=== PATIENT | female | born 1935 | race Caucasian/White ===

== ENCOUNTER → 2017-10-19 | Outpatient (CLI) | payer MEDICARE ==
[~2017-10-19] MED LIST: ATELVIA35 MG PO; ATENOLOL50 MG PO; B-12; B-6 PO; CEFDINIR300 MG PO; CILOSTAZOL50 MG PO; CLINDAMYCIN HC300 MG PO; CYMBALTA30 MG PO; DIATRIZOATE MEGL/DIATRIZOA SOD 30 ML BTL PO ONE; ENALAPRIL MALE2.5 MG PO; FOLIC ACID PO; FUROSEMIDE40 MG PO; HYDROCODON-ACE1 EAC9 PO; IODOSORB40 GM TOP; IOPAMIDOL 370 MG/ML 200 ML INFUS..BTL INJ ONE; LASIX20 MG PO; LASIX40 MG PO; OXYBUTYNIN CHLOR5 MG PO; PLETAL50 MG PO; PRAVASTATIN SOD10 MG PO; PRIMIDONE50 MG PO; PROBIOTIC COMP1 EAC1 PO; SERTRALINE HCL50 MG PO; SODIUM CHLORIDE 0.9% 50ML 50 ML ONE; TYLENOL WITH C1 EACH PO; WARFARIN SODIUM5 MG PO; Z.0.COUMADIN2.5 MG PO; ZOFRAN ODT4 MG PO; ZYVOX600 MG PO
[2017-10-19 18:22] LABS: BLOOD UREA NITROGEN 20 mg/dL (7-26); BUN/CREATININE RATIO 29 (6-25); CREATININE, SERUM 0.69 mg/dL (0.57-1.11); EST GLOMERULAR FILTRATION RATE > 60 ML/MIN (60-)
--- NOTE | 2017-10-19 21:12 | Diagnostic Imaging Report ---
EXAM: CT of the abdomen and pelvis WITH contrast HISTORY: UTI, abdominal pain COMPARISON: CTA of the abdomen and pelvis October 04, 2015. CT of the abdomen and pelvis October 02, 2015. TECHNIQUE: The abdomen and pelvis were scanned utilizing a multidetector helical scanner. Coronal and sagittal reformats are provided. PROTOCOL: Routine IV CONTRAST: 100 cc of Isovue-370. ORAL CONTRAST: Dilute Gastrografin RADIATION DOSE: Total DLP: 280.08 mGy*cm Estimated effective dose: (DLP x 0.015 x size factor) COMPLICATIONS: None FINDINGS: LOWER THORAX: Prominent enlargement of the heart. Small low-density pericardial effusion. HEPATOBILIARY: Reflux of contrast into the hepatic veins. No focal hepatic lesions. No biliary ductal dilatation. The gallbladder is unremarkable. SPLEEN: No splenomegaly. PANCREAS: No focal masses or ductal dilatation. Diffuse parenchymal atrophy. ADRENALS: No discrete adrenal nodule. KIDNEYS/URETERS: No hydronephrosis or solid mass lesion. Left greater than right parenchymal atrophy. A punctate nonobstructing calcification near the inferior pole of the right kidney. PELVIC ORGANS/BLADDER: The urinary bladder is decompressed with a small focus of nondependent air. PERITONEUM / RETROPERITONEUM: Within the pelvis, between the urinary bladder and the sigmoid colon, a 2.1 x 5.5 x 2.3 cm apparent collection containing air foci and likely fecal material, best seen on axial image 69 and coronal image 55. LYMPH NODES: No pathologically enlarged lymph node. VESSELS: Diffuse scattered atherosclerotic vascular calcifications. Multiple vascular stents high-grade stenoses at the proximal celiac and superior mesenteric arteries. GI TRACT: No distention or wall thickening identified. Postsurgical changes of the stomach. Colonic diverticulosis and segmental sigmoid probable wall thickening. BONES: Diffusely decreased mineralization of the osseous structures limits bone detail. Multifocal degenerative changes of the axial skeleton, most notably at L4-5 with associated degenerative anterolisthesis of L4 on L5. SOFT TISSUES: Ventral abdominal wall postsurgical changes, appear stable, including some central hypodensity which may reflect a postsurgical fluid collection.. IMPRESSION: 1. Sigmoid colon segmental wall thickening and diverticulosis with probable collection of air and fecal material between the sigmoid colon and urinary bladder, along with a small air focus within the urinary bladder. This constellation of findings is suggestive of a fistula. An underlying malignancy may be a consideration in the appropriate setting. 2. Cardiomegaly and findings compatible with right heart failure. 3. A punctate nonobstructing right renal calculus. 4. Multiple postsurgical changes. 5. Atherosclerotic vascular disease. Signed by: Dr. Javier Salamanca D.O., M.M.M. on 10/19/2017 9:08 PM
== END ==
LOC: CT 17:19
PROVIDERS: ATTEND Internal Medicine
DX: N39.0 Urinary tract infection, site not specified (principal); R19.00 Intra-abdominal and pelvic swelling, mass and lump, unspecified site
CPT/HCPCS: 36415; 74177; 82565; 84520; Q9967

== ENCOUNTER → 2017-12-15 | Day surgery (SDC) | payer MEDICARE ==
[2017-12-12 16:57] LABS: BASOPHILS % 0.4 % (0.0-1.0); EOSINOPHILS # (AUTO) 0.1 (0.0-0.4); EOSINOPHILS % 1.5 % (0.0-6.0); HEMATOCRIT 29.1 % (34.2-44.1); HEMOGLOBIN 8.7 g/dL (12.0-16.0); LYMPHOCYTES # (AUTO) 2.6 (1.0-3.2); MEAN CORPUSCULAR HGB CONC 29.9 g/dL (31-35); MEAN CORPUSCULAR VOLUME 80.4 fL (81-99); MONOCYTES # (AUTO) 1.1 (0.2-0.8); MONOCYTES % 13.1 % (4.4-11.3); NEUTROPHILS # (AUTO) 4.5 (2.1-6.9); NEUTROPHILS % 53.8 % (38.7-80.0); PLATELET COUNT 294 x10e3/uL (140-360); RED BLOOD COUNT 3.62 x10e6/uL (3.6-5.1); RED CELL DISTRIBUTION WIDTH 20.6 % (11.7-14.4)
[~2017-12-15] MED LIST changes: +COUMADIN3 MG PO; -DIATRIZOATE MEGL/DIATRIZOA SOD 30 ML BTL PO ONE; +FOLIC ACID1 MG PO; -IOPAMIDOL 370 MG/ML 200 ML INFUS..BTL INJ ONE; +LEVOXYL25 MCG PO; +LIDOCAINE HCL 2% LOCAL INJ 5 ML SDV VIAL INJ ONE; +MIRALAX17 GM PO; +OMEGA-31000 MG PO; +POTASSIUM CITR10 MEQ PO; +PROPOFOL IV EMULSION 10 MG/ML 50 ML VIAL ONE; -SODIUM CHLORIDE 0.9% 50ML 50 ML ONE; +VIT C PO; +VITAMIN B-121000 MCG INJ
--- OUTSIDE RECORDS SUMMARY | 2017-12-15 11:01 | XMS REPORT ---
Author Author [facility] Address Unknown Phone Unavailable Care Team Providers Care Animal Care Taker Name Role Phone JEANNINE ZELAYA Unavailable Unavailable Problems This patient has no known problems. Allergies, Adverse Reactions, Alerts This patient has no known allergies or adverse reactions. Medications This patient has no known medications. Results Test Description Test Time Test Comments Text Results Atomic Results Result Comments CT ABDOMEN/PELVIS [place] [address] Patient Name: NATHANIEL HARRINGTON I MR #: [id number] : 1935 Age/Sex: 81/F Req #: [id number] Adm Physician: Ordered by: JEANNINE ZELAYA MD Report #: [id number] Location: CT Room/Bed: Procedure: [id number] CT/CT ABDOMEN/PELVIS W Exam Date: 10/19/17 Exam Time: 1830 REPORT STATUS: Signed EXAM: CT of the abdomen and pelvis WITH contrast HISTORY: UTI, abdominal pain COMPARISON : CTA of the abdomen and pelvis October 04, 2015. CT of the abdomen and pelvis October 02, 2015. TECHNIQUE: The abdomen and pelvis were scanned utilizing a multidetector helical scanner. Coronal and sagittal reformats are provided. PROTOCOL: Routine IV CONTRAST: 100 cc of Isovue-370. ORAL CONTRAST: Dilute Gastrografin RADIATION DOSE: Total DLP: 280.08 mGy*cm Estimated effective dose: (DLP x 0.015 x size factor) COMPLICATIONS: None FINDINGS: LOWER THORAX: Prominent enlargement of the heart. Small low-density pericardial effusion. HEPATOBILIARY: Reflux of contrast into the hepatic veins. No focal hepatic lesions. No biliary ductal dilatation. The gallbladder is unremarkable. SPLEEN: No splenomegaly. PANCREAS: No focal masses or ductal dilatation. Diffuse parenchymal atrophy. ADRENALS: No discrete adrenal nodule. KIDNEYS/URETERS: No hydronephrosis or solid mass lesion. Left greater than right parenchymal atrophy. A punctate nonobstructing calcification near the inferior pole of the right kidney. PELVIC ORGANS/BLADDER: The urinary bladder is decompressed with a small focus of nondependent air. PERITONEUM / RETROPERITONEUM: Within the pelvis, between the urinary bladder and the sigmoid colon, a 2.1 x 5.5 x 2.3 cm apparent collection containing air foci and likely fecal material, best seen on axial image 69 and coronal image 55. LYMPH NODES: No pathologically enlarged lymph node. VESSELS: Diffuse scattered atherosclerotic vascular calcifications. Multiple vascular stents high-grade stenoses at the proximal celiac and superior mesenteric arteries. GI TRACT: No distention or wall thickening identified. Postsurgical changes of the stomach. Colonic diverticulosis and segmental sigmoid probable wall thickening. BONES: Diffusely decreased mineralization of the osseous structures limits bone detail. Multifocal degenerative changes of the axial skeleton, most notably at L4-5 with associated degenerative anterolisthesis of L4 on L5. SOFT TISSUES: Ventral abdominal wall postsurgical changes, appear stable, including some central hypodensity which may reflect a postsurgical fluid collection.. IMPRESSION: 1. Sigmoid colon segmental wall thickening and diverticulosis with probable collection of air and fecal material between the sigmoid colon and urinary bladder, along with a small air focus within the urinary bladder. This constellation of findings is suggestive of a fistula. An underlying malignancy may be a consideration in the appropriate setting. 2. Cardiomegaly and findings compatible with right heart failure. 3. A punctate nonobstructing right renal calculus. 4. Multiple postsurgical changes. 5. Atherosclerotic vascular disease. Signed by: Dr. Chelsea Salamanca D.O., M.M.M. on 10/19/2017 9:08 PM Dictated By : CHELSEA SALAMANCA DO 07 Transcribed By: KATHERINE on 10/19/172107 COPY TO: JEANNINE ZELAYA MD ABDOMEN-1VIEW (KUB) [facility] [address] [address] Patient Name: NATHANIEL HARRINGTON I MR #: [id number] : 1935 Age/Sex: 81/F Req #: [id number] Adm Physician: Ordered by: JEANNINE ZELAYA MD Report #: [id number] Location: [facility] Room/Bed: Procedure: [id number] DX/ABDOMEN-1VIEW (KUB) Exam Date: 04/07/17 Exam Time: 8 REPORT STATUS: Signed PROCEDURE: X-RAY ABDOMEN - KUB COMPARISON: [facility], DX, ABDOMEN-1VIEW ( KUB), 01/23/2016, 16:49. INDICATIONS: REFLUX FINDINGS: Focal dilation of the proximal transverse colon, which measures approximately 8.7 cm in diameter, however, the proximal and distal large bowel are normal in caliber. No air-filled, dilated loops of small bowel. Mild amount of retained stool. No abnormal calcifications. Postoperative changes in the left upper quadrant as well as mesh placement and right common iliac stent are again seen. Degenerative changes in the thoracic spine. Lung bases are clear. Stable marked cardiomegaly. CONCLUSION: Focal dilation of the proximal transverse colon, however, the proximal and distal large bowel are normal in caliber. This may represent transient peristalsis. No small bowel dilation. Arturo Og M.D. Dictated by: Arturo Og M.D. on 04/07/2017 at 19:24 Electronically approved by: Arturo Og M.D. on 04/07/2017 at 19:24 Dictated By: ARTURO OG MD 23 Transcribed By: VALERIA on 04/07/171923 COPY TO: JEANNINE ZELAYA MD
[2017-12-15 11:42] LABS: INR 1.29; PROTHROMBIN TIME 15.1 seconds (11.9-14.5)
--- NOTE | 2017-12-18 05:07 | Operative Report ---
DATE OF PROCEDURE: December 15, 2017 REFERRING PHYSICIAN: Dr. Cierra Zelaya PROCEDURES PERFORMED 1. Esophagogastroduodenoscopy with esophageal dilatation. 2. Flexible sigmoidoscopy. INDICATIONS FOR EGD: Dysphagia, nausea and vomiting. INDICATIONS FOR COLONOSCOPY: Colorectal cancer screening, history of bright red blood per rectum, melena. MEDICATION: Patient was done under MAC. Please see anesthesiologist's note. PROCEDURE: With the patient in the left lateral decubitus position, the flexible fiberoptic Olympus gastroscope was introduced into the esophagus under direct visualization without any difficulty. There was some patchy erythema noted in the distal esophagus. There was a mild stricture noted at the GE junction that was dilated to size 52-Korean Dykes. The scope was then advanced with ease into the stomach, and there was a gastric stapling site approximately 5 cm distal to the lower esophageal sphincter. The gastroplasty site was intact. The scope was then advanced into the distal stomach, and the mucosa overlying the antrum and the distal body revealed some patchy, intense erythema and moderate edema, and biopsies were obtained and sent to stain for H. pylori. The pylorus was of normal contour and shape. It was intubated with ease, and the scope was advanced all the way to the 2nd portion of the duodenum. The scope was then withdrawn slowly. Mucosa overlying the proximal 2nd portion and the duodenal bulb appeared to be within normal limits. The scope was then withdrawn to above the gastric stapling site and was retroflexed. The mucosa overlying the fundus and the cardia appeared to be within normal limits. The scope was then straightened out. It was subsequently withdrawn. Patient tolerated the procedure well. IMPRESSION 1. Distal esophagitis. 2. Esophageal stricture at gastroesophageal junction dilated to size 52-Korean Dykes. 3. Status post gastric stapling. 4. Gastritis, biopsied. Biopsies sent to stain for H. pylori. PLAN: Follow up histology. Initiate Protonix 40 mg 1 p.o. q.a.m. a.c. The patient was then turned around. After adequate lubrication of the anal canal, a flexible fiberoptic Olympus colonoscope was inserted into the rectum with ease. It could not be advanced beyond 20 cm from the anal verge. The sigmoid colon was very sharply angulated and fixed. The scope was subsequently withdrawn, and an EGD scope was inserted into the rectum. Also, we could not negotiate that site with the EGD scope. There was some diverticulosis noted in the site. The scope was then withdrawn slowly. The mucosa overlying the distal sigmoid and rectum grossly appeared to be within normal limits. An attempt to retroflex the scope in the distal rectum was unsuccessful as the patient kept getting rid of the insufflated air. The scope was then withdrawn. Patient tolerated the procedure well. IMPRESSION 1. Flexible sigmoidoscopy to approximately 20 cm from the anal verge. Could not advance any further even with esophagogastroduodenoscope due to the distal sigmoid being sharply angulated and fixed. 2. Diverticulosis. PLAN: Will discuss with patient regarding the option of an air contrast barium enema. Job#: [id number] cc:JEANNINE ZELAYA MD
== END | disposition home or self-care (01) ==
LOC: OR 10:58
PROVIDERS: ATTEND Internal Medicine Gastroenterology
DX: Z12.11 Encounter for screening for malignant neoplasm of colon (principal); K29.50 Unspecified chronic gastritis without bleeding; K22.2 Esophageal obstruction; K20.9 Esophagitis, unspecified; Z98.84 Bariatric surgery status; K21.9 Gastro-esophageal reflux disease without esophagitis; K57.30 Diverticulosis of large intestine without perforation or abscess without bleeding; K56.609 Unspecified intestinal obstruction, unspecified as to partial versus complete obstruction; K62.5 Hemorrhage of anus and rectum; M19.90 Unspecified osteoarthritis, unspecified site; Z91.048 Other nonmedicinal substance allergy status; J45.909 Unspecified asthma, uncomplicated; E11.9 Type 2 diabetes mellitus without complications; I11.0 Hypertensive heart disease with heart failure; I50.9 Heart failure, unspecified; I48.91 Unspecified atrial fibrillation; N39.0 Urinary tract infection, site not specified; F32.9 Major depressive disorder, single episode, unspecified; Z01.812 Encounter for preprocedural laboratory examination; Z88.0 Allergy status to penicillin; Z79.01 Long term (current) use of anticoagulants; Z85.828 Personal history of other malignant neoplasm of skin; Z87.891 Personal history of nicotine dependence
CPT/HCPCS: 43239; 43450; G0104; 36415; 45330; 82948; 85025; 85610; 85730; 88305; 88312; J2001

== ENCOUNTER 2018-01-19 12:30 | Inpatient (IN) | payer MEDICARE ==
[~2018-01-19] VITALS: Ht 165.1 cm; Wt 59.0 kg
[~2018-01-19 12:30] MED LIST changes: -LIDOCAINE HCL 2% LOCAL INJ 5 ML SDV VIAL INJ ONE; -PROPOFOL IV EMULSION 10 MG/ML 50 ML VIAL ONE
[2018-01-19 13:15] LABS: BASOPHILS # (AUTO) 0.1 (0.0-0.1); BASOPHILS % 0.4 % (0.0-1.0); EOSINOPHILS # (AUTO) 0.1 (0.0-0.4); HEMATOCRIT 24.3 % (34.2-44.1); HEMOGLOBIN 7.3 g/dL (12.0-16.0); LYMPHOCYTES # (AUTO) 2.4 (1.0-3.2); LYMPHOCYTES % 20.4 % (18.0-39.1); MEAN CORPUSCULAR HEMOGLOBIN 24.1 pg (28-32); MEAN CORPUSCULAR VOLUME 80.2 fL (81-99); MONOCYTES # (AUTO) 1.8 (0.2-0.8); MONOCYTES % 15.2 % (4.4-11.3); NEUTROPHILS # (AUTO) 7.2 (2.1-6.9); NEUTROPHILS % 62.3 % (38.7-80.0); PLATELET COUNT 296 x10e3/uL (140-360); RED BLOOD COUNT 3.03 x10e6/uL (3.6-5.1); RED CELL DISTRIBUTION WIDTH 19.1 % (11.7-14.4)
[2018-01-19 13:34] LABS: ALANINE AMINOTRANSFERASE 12 IU/L (0-55); ALBUMIN 3.1 g/dL (3.5-5.0); ALBUMIN/GLOBULIN RATIO 0.8 (0.8-2.0); ALKALINE PHOSPHATASE 124 IU/L (40-150); ANION GAP 12.2 mmol/L (8-16); BLOOD UREA NITROGEN 20 mg/dL (7-26); BUN/CREATININE RATIO 27 (6-25); CALCIUM 9.1 mg/dL (8.4-10.2); CARBON DIOXIDE 27 mmol/L (22-29); CHLORIDE 103 mmol/L (98-107); CREATININE, SERUM 0.75 mg/dL (0.57-1.11); EST GLOMERULAR FILTRATION RATE > 60 ML/MIN (60-); GLUCOSE 86 mg/dL (74-118); POTASSIUM 4.2 mmol/L (3.5-5.1); SODIUM 138 mmol/L (136-145)
[2018-01-19 15:12] LABS: CLARITY,URINE SL CLOUDY (CLEAR); COLOR,URINE YELLOW (YELLOW); KETONES,URINE NEGATIVE (NEGATIVE); LEUKOCYTE ESTERASE ,URINE 1+ (NEGATIVE); NITRITE,URINE NEGATIVE (NEGATIVE); PROTEIN,URINE DIPSTICK NEGATIVE (NEGATIVE)
[2018-01-19 15:13] LABS: BILIRUBIN,URINE NEGATIVE (NEGATIVE); URINE UROBILINOGEN 0.2 mg/dL (0.2 - 1)
[2018-01-19 15:23] LABS: BACTERIA,URINE MODERATE /HPF; EPITHELIAL CELLS,URINE FEW /LPF; MUCUS,URINE FEW (RARE)
[2018-01-19 15:25] LABS: INR 1.41; PROTHROMBIN TIME 16.2 seconds (11.9-14.5)
[2018-01-19 15:26] LABS: PARTIAL THROMBOPLASTIN TIME 30.3 seconds (23.8-35.5)
[2018-01-19] MEDS ORDERED: SODIUM CHLORIDE 0.9% 250ML 250 ML IV ONE (16:30)
[2018-01-19] MEDS ORDERED: ACETAMINOPHEN 325 MG TAB PO STA (16:31)
[2018-01-19] MEDS ORDERED: SODIUM CHLORIDE FLUSH 10 ML SYR INJ PRN (16:45)
[2018-01-19] MEDS ORDERED: LEVOFLOXACIN 500 MG TAB PO SCH (17:30)
[2018-01-19] MEDS ORDERED: FUROSEMIDE 40 MG TAB PO SCH (17:30)
[2018-01-19] MEDS ORDERED: FUROSEMIDE 20 MG TAB PO PRN (17:45)
[2018-01-19] MEDS ORDERED: FUROSEMIDE INJ 10 MG/ML 4 ML VIAL IV ONE (17:45)
--- NOTE | 2018-01-19 18:43 | History and Physical ---
She is an 82-year-old female patient of mine who presented to the emergency room with the complaint of severe weakness and bloody urine. HISTORY OF PRESENT ILLNESS: The patient was evaluated as outpatient. The patient was found to have a low hemoglobin of 7.4. The patient was advised to be admitted. Possible anemia as the patient is on anticoagulation. The patient had a recent endoscopy done, but the patient had incomplete colonoscopy. It was sigmoid because of that and inability to pass the scope further than the sigmoid colon. ALLERGIES: THE PATIENT IS ALLERGIC TO PENICILLIN. SOCIAL HISTORY: The patient used to be a smoker. Stopped smoking. REVIEW OF SYSTEMS: The patient is wheelchair bound. PAST MEDICAL HISTORY: The patient has hypertension, anemia, atrial fibrillation, recurrent UTIs, wheelchair bound. The patient has PAD. The patient with lower extremity skin cancer, which was treated with radiation. FAMILY HISTORY: Hypertension, osteoarthritis. PHYSICAL EXAMINATION GENERAL: She is an elderly female patient lying in bed not in acute distress. VITALS: Temperature 98, pulse rate 80, respirations 16, blood pressure 110/73. HEENT: Normocephalic and atraumatic. Pallor present. NECK: No JVD or lymphadenopathy. LUNGS: Air entry fair bilaterally. No rales or rhonchi. HEART: S1 and S2. Irregularly irregular. ABDOMEN: Soft. Bowel sounds are present. NEURO: Nonfocal. No neurological deficit. ADMITTING IMPRESSION/DIAGNOSES 1. Severe anemia. 2. Anemia of ptpbs-[id number] blood loss: The patient is on anticoagulation for the atrial fibrillation, on Coumadin. 3. The patient also has a urinary tract infection. 4. The patient has coronary artery disease. 5. Severe osteoarthritis. PLAN: The patient will be admitted with the above diagnoses. Will treat the patient with IV antibiotics. Culture C and S. Give the patient packed RBCs for severe anemia. Will obtain neurology consultation. Job#: [id number] AK
[2018-01-19 20:00] VITALS: BP 127/75
[2018-01-19 20:01] VITALS: BP 162/74
[2018-01-19 20:25] LABS: ELLIPTOCYTE, RBC SLIGHT; EOSINOPHILS % (MANUAL) 2 % (0-7); HYPOCHROMASIA SLIGHT; LYMPHOCYTES % (MANUAL) 10 % (19-48); MONOCYTES % (MANUAL) 12 % (3.4-9.0); NEUTROPHILS % (MANUAL) 75 % (40-74); PLATELET ESTIMATE ADEQUATE; PLATELET MORPHOLOGY COMMENT NORMAL; POIKILOCYTOSIS SLIGHT; RBC MORPHOLOGY COMMENT NORMAL; STOMATOCYTES SLIGHT
[2018-01-19] MEDS: PRAVASTATIN 20 MG TAB PO SCH (21:00)
[2018-01-19] MEDS ORDERED: FUROSEMIDE INJ 10 MG/ML 4 ML VIAL ONE (23:44)
[2018-01-20] VITALS (8 sets, daily range): BP systolic 124–158; BP diastolic 55–79
[2018-01-20] MEDS: MORPHINE SULFATE 2 MG/ML SYR IV PRN ×3 (00:29→21:31)
[2018-01-20] MEDS: ONDANSETRON HCL INJ 2 MG/ML VIAL IV PRN (00:31)
[2018-01-20 05:35] LABS: BASOPHILS % 0.3 % (0.0-1.0); EOSINOPHILS # (AUTO) 0.1 (0.0-0.4); EOSINOPHILS % 0.6 % (0.0-6.0); HEMATOCRIT 28.9 % (34.2-44.1); HEMOGLOBIN 9.1 g/dL (12.0-16.0); LYMPHOCYTES # (AUTO) 2.1 (1.0-3.2); LYMPHOCYTES % 15.5 % (18.0-39.1); MEAN CORPUSCULAR HEMOGLOBIN 24.9 pg (28-32); MEAN CORPUSCULAR HGB CONC 31.5 g/dL (31-35); MEAN CORPUSCULAR VOLUME 79.2 fL (81-99); MONOCYTES # (AUTO) 2.2 (0.2-0.8); MONOCYTES % 16.1 % (4.4-11.3); NEUTROPHILS # (AUTO) 9.1 (2.1-6.9); NEUTROPHILS % 67.1 % (38.7-80.0); PLATELET COUNT 296 x10e3/uL (140-360); RED BLOOD COUNT 3.65 x10e6/uL (3.6-5.1); RED CELL DISTRIBUTION WIDTH 18.1 % (11.7-14.4)
[2018-01-20 06:00] LABS: ALANINE AMINOTRANSFERASE 12 IU/L (0-55); ALBUMIN 2.9 g/dL (3.5-5.0); ALBUMIN/GLOBULIN RATIO 0.7 (0.8-2.0); ALKALINE PHOSPHATASE 119 IU/L (40-150); BLOOD UREA NITROGEN 21 mg/dL (7-26); BUN/CREATININE RATIO 26 (6-25); CALCIUM 9.1 mg/dL (8.4-10.2); CARBON DIOXIDE 31 mmol/L (22-29); CHLORIDE 99 mmol/L (98-107); EST GLOMERULAR FILTRATION RATE > 60 ML/MIN (60-); GLUCOSE 92 mg/dL (74-118); SODIUM 138 mmol/L (136-145)
[2018-01-20] MEDS: LEVOTHYROXINE SODIUM 25 MCG TABLET PO SCH (06:00)
[2018-01-20 06:14] LABS: INR 1.37; PROTHROMBIN TIME 15.9 seconds (11.9-14.5)
[2018-01-20 06:47] LABS: ANISOCYTOSIS SLIGHT; EOSINOPHILS % (MANUAL) 1 % (0-7); LYMPHOCYTES % (MANUAL) 13 % (19-48); MICROCYTOSIS SLIGHT; MONOCYTES % (MANUAL) 18 % (3.4-9.0); NEUTROPHILS % (MANUAL) 68 % (40-74); PLATELET ESTIMATE ADEQUATE; PLATELET MORPHOLOGY COMMENT NORMAL; RBC MORPHOLOGY COMMENT NORMAL
[2018-01-20] MEDS ORDERED: ENALAPRIL MALEATE 2.5 MG PO SCH (09:00)
[2018-01-20] MEDS ORDERED: NON-FORMULARY MEDICATION (Pravastatin Sodium 20 MG) PO SCH (09:00)
[2018-01-20] MEDS ORDERED: ASCORBIC ACID 500 MG TAB PO SCH (09:00)
[2018-01-20] MEDS ORDERED: OMEGA 3 POLYUNSAT FATTY ACIDS 1000 MG SOFTGEL PO SCH (09:00)
[2018-01-20] MEDS ORDERED: LEVOTHYROXINE SODIUM 25 MCG TABLET PO SCH (09:00)
[2018-01-20] MEDS ORDERED: VIT C PO SCH (09:00)
[2018-01-20] MEDS: FOLIC ACID 1 MG TAB PO SCH (09:03)
[2018-01-20] MEDS: ATENOLOL 50 MG TAB PO SCH (09:03)
[2018-01-20] MEDS: PRIMIDONE 50 MG TAB PO SCH (09:03)
[2018-01-20] MEDS: SERTRALINE HCL 50 MG TAB PO SCH (09:04)
[2018-01-20] MEDS: POTASSIUM CITRATE 10 MEQ TAB PO SCH (09:04)
[2018-01-20] MEDS: ENALAPRIL MALEATE 5 MG TAB PO SCH (09:04)
[2018-01-20] MEDS ORDERED: METOPROLOL TARTRATE INJ 1 MG/ML VIAL IV PRN (12:45)
[2018-01-20] MEDS ORDERED: HYDRALAZINE HCL 20 MG/ML VIAL IV PRN (12:45)
[2018-01-20 12:52] LABS: MAGNESIUM 1.4 MG/DL (1.3-2.1); PHOSPHORUS 3.2 MG/DL (2.3-4.7)
[2018-01-20 13:15] LABS: FREE THYROXINE INDEX 1.7441 (1.4-3.8); THYROID STIMULATING HORMONE 1.222 uIU/mL (0.350-4.940)
[2018-01-20] MEDS ORDERED: SODIUM CHLORIDE 0.9% IV ONE (14:00)
[2018-01-20] MEDS ORDERED: IRON SUCROSE IV ONE (14:00)
[2018-01-20 14:26] LABS: FERRITIN 26.8 ng/mL (4.63-204.00)
[2018-01-20] MEDS ORDERED: IRON SUCROSE 200 MG in SODIUM CHLORIDE 0.9% 100 ML 100 ML IV SCH (15:00)
--- NOTE | 2018-01-20 16:40 | Consultation ---
DATE OF CONSULTATION: January 20, 2018 UROLOGY CONSULTATION REASON FOR CONSULTATION: Hematuria. HISTORY OF PRESENT ILLNESS: Anila Scott is an 82-year-old woman with recurrent urinary tract infections. Patient has both stress and urge-type urinary incontinence. She has never seen a urologist. She denies any previous urolithiasis. She has had intermittent gross hematuria, and she is anticoagulated. She was evaluated for admission. PAST MEDICAL AND SURGICAL HISTORY 1. Atrial fibrillation. 2. Anemia. 3. Hypertension. 4. Osteoarthritis with extremely bad knees. 5. Peripheral artery disease status post bilateral lower extremity stenting. 6. COPD. 7. 3, para 3 by spontaneous vaginal delivery. 8. Status post skin cancer of the lower extremity, status post radiotherapy followed by a dtyr-ucv-l-half of healing a wound. 9. Status post ventral hernia repair. 10. Status post EGD with dilation of esophageal stricture. 11. Status post sigmoidoscopy with inability to pass further. ALLERGIES: PENICILLIN, ADHESIVE TAPE, AND POSSIBLY IV CONTRAST. CURRENT MEDICATIONS: Please refer to the MAR. SOCIAL HISTORY: The patient has a supportive at the bedside. She denies current smoking, alcohol and drug use. The patient used to smoke but quit many years ago. 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 FAMILY HISTORY: Noncontributory to the active urological problems. REVIEW OF SYSTEMS: As consistent with above history of present illness and past medical history, is otherwise negative for all other systems. PHYSICAL EXAMINATION GENERAL: A debilitated-appearing elderly woman lying in bed in no apparent distress. VITAL SIGNS: She is currently afebrile. Her vital signs are currently stable. ABDOMEN: Soft, nondistended, nontender, without costovertebral angle tenderness. Kidneys are not palpable, without hepatosplenomegaly. There is a healed midline scar from previous hernia repair. GENITOURINARY: The patient is currently in a diaper, and the urine is grossly bloody. For the remaining physical examination and systems, please refer to the admission history and physical on the chart. LABORATORY AND DIAGNOSTIC STUDIES: CT scan of the abdomen and pelvis performed 3 months ago revealed a sigmoid colon segmental wall thickening and diverticulosis with probable collection of fecal material between the sigmoid colon and the urinary bladder along with a small air focus in the urinary bladder. This was suggesting of a colovesical fistula. Also, there is a punctate right renal calculus present and atherosclerotic vascular disease. No urine culture is pending on this current admission, unfortunately. White blood cell count is 13,580. Hemoglobin has decreased to 9.1. Platelets are 296,000. Patient's creatinine is normal at 0.8. Urinalysis significant for 6-10 RBCs, 11-20 WBCs, a few epithelial cells and moderate bacteria. ASSESSMENT 1. Gross hematuria. 2. Leukocytosis. 3. Anemia. 4. Recurrent urinary tract infections. 5. Punctate right nephrolithiasis. 6. Mixed-type urinary incontinence. 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 PLAN 1. Will order a urine culture and sensitivity on ER urinalysis specimen. 2. Recommend decreasing the Levaquin dose due to increased age of the patient. 3. We need a catheterized urine culture and sensitivity. 4. The patient needs cystoscopy and retrograde pyelograms, et cetera, when medically and cardiologically cleared. Thank you very much for involving us in the care of your patient. We will be happy to follow her along with you as well as an outpatient. Job#: [id number] cc:JEANNINE ZELAYA MD
[2018-01-20] MEDS: LEVOFLOXACIN 250 MG TAB PO SCH (16:46)
[2018-01-20] MEDS: PRAVASTATIN 20 MG TAB PO SCH (21:30)
[2018-01-21] VITALS (9 sets, daily range): BP systolic 104–161; BP diastolic 44–84
[2018-01-21] MEDS: PANTOPRAZOLE 40 MG 10ML VIAL IV SCH ×3 (02:00→20:09)
[2018-01-21] MEDS: MORPHINE SULFATE 2 MG/ML SYR IV PRN ×4 (02:10→20:10)
[2018-01-21 04:51] LABS: BASOPHILS % 0.4 % (0.0-1.0); EOSINOPHILS # (AUTO) 0.1 (0.0-0.4); HEMATOCRIT 28.8 % (34.2-44.1); HEMOGLOBIN 8.9 g/dL (12.0-16.0); LYMPHOCYTES # (AUTO) 1.9 (1.0-3.2); LYMPHOCYTES % 17.1 % (18.0-39.1); MEAN CORPUSCULAR HEMOGLOBIN 24.9 pg (28-32); MEAN CORPUSCULAR HGB CONC 30.9 g/dL (31-35); MEAN CORPUSCULAR VOLUME 80.4 fL (81-99); MONOCYTES # (AUTO) 1.9 (0.2-0.8); MONOCYTES % 16.9 % (4.4-11.3); NEUTROPHILS # (AUTO) 7.2 (2.1-6.9); NEUTROPHILS % 64.1 % (38.7-80.0); PLATELET COUNT 264 x10e3/uL (140-360); RED BLOOD COUNT 3.58 x10e6/uL (3.6-5.1); RED CELL DISTRIBUTION WIDTH 18.7 % (11.7-14.4)
[2018-01-21 05:03] LABS: INR 1.55; PROTHROMBIN TIME 17.5 seconds (11.9-14.5)
[2018-01-21] MEDS: LEVOTHYROXINE SODIUM 25 MCG TABLET PO SCH (06:25)
[2018-01-21 07:34] LABS: EOSINOPHILS % (MANUAL) 3 % (0-7); LYMPHOCYTES % (MANUAL) 10 % (19-48); MONOCYTES % (MANUAL) 13 % (3.4-9.0); NEUTROPHILS % (MANUAL) 74 % (40-74); PLATELET ESTIMATE ADEQUATE; PLATELET MORPHOLOGY COMMENT NORMAL; RBC MORPHOLOGY COMMENT NORMAL
[2018-01-21] MEDS: PRIMIDONE 50 MG TAB PO SCH (10:05)
[2018-01-21] MEDS: FOLIC ACID 1 MG TAB PO SCH (10:05)
[2018-01-21] MEDS: SERTRALINE HCL 50 MG TAB PO SCH (10:06)
[2018-01-21] MEDS: POTASSIUM CITRATE 10 MEQ TAB PO SCH (10:06)
[2018-01-21] MEDS: ENALAPRIL MALEATE 5 MG TAB PO SCH (10:06)
[2018-01-21] MEDS: ATENOLOL 50 MG TAB PO SCH (10:06)
[2018-01-21] MEDS: LEVOFLOXACIN 250 MG TAB PO SCH (17:37)
[2018-01-21] MEDS: PRAVASTATIN 20 MG TAB PO SCH (20:09)
[2018-01-21] MEDS: ONDANSETRON HCL INJ 2 MG/ML VIAL IV PRN (20:09)
[2018-01-22] VITALS (8 sets, daily range): BP systolic 119–169; BP diastolic 58–74
[2018-01-22 04:25] LABS: BASOPHILS % 0.3 % (0.0-1.0); EOSINOPHILS # (AUTO) 0.1 (0.0-0.4); EOSINOPHILS % 0.7 % (0.0-6.0); HEMATOCRIT 28.9 % (34.2-44.1); HEMOGLOBIN 8.7 g/dL (12.0-16.0); LYMPHOCYTES # (AUTO) 2.3 (1.0-3.2); LYMPHOCYTES % 18.4 % (18.0-39.1); MEAN CORPUSCULAR HGB CONC 30.1 g/dL (31-35); MONOCYTES # (AUTO) 2.3 (0.2-0.8); MONOCYTES % 18.8 % (4.4-11.3); NEUTROPHILS # (AUTO) 7.5 (2.1-6.9); NEUTROPHILS % 61.3 % (38.7-80.0); PLATELET COUNT 246 x10e3/uL (140-360); RED BLOOD COUNT 3.48 x10e6/uL (3.6-5.1); RED CELL DISTRIBUTION WIDTH 19.7 % (11.7-14.4)
[2018-01-22 04:36] LABS: INR 1.53; PROTHROMBIN TIME 17.3 seconds (11.9-14.5)
[2018-01-22 04:44] LABS: ALANINE AMINOTRANSFERASE 9 IU/L (0-55); ALBUMIN 2.6 g/dL (3.5-5.0); ALBUMIN/GLOBULIN RATIO 0.7 (0.8-2.0); ALKALINE PHOSPHATASE 113 IU/L (40-150); ANION GAP 10.3 mmol/L (8-16); BLOOD UREA NITROGEN 15 mg/dL (7-26); BUN/CREATININE RATIO 22 (6-25); CALCIUM 8.9 mg/dL (8.4-10.2); CARBON DIOXIDE 30 mmol/L (22-29); CHLORIDE 99 mmol/L (98-107); CREATININE, SERUM 0.69 mg/dL (0.57-1.11); EST GLOMERULAR FILTRATION RATE > 60 ML/MIN (60-); GLUCOSE 97 mg/dL (74-118); POTASSIUM 4.3 mmol/L (3.5-5.1); SODIUM 135 mmol/L (136-145)
[2018-01-22] MEDS: MORPHINE SULFATE 2 MG/ML SYR IV PRN ×2 (05:22→19:46)
[2018-01-22] MEDS: LEVOTHYROXINE SODIUM 25 MCG TABLET PO SCH (05:22)
[2018-01-22 06:57] LABS: EOSINOPHILS % (MANUAL) 1 % (0-7); LYMPHOCYTES % (MANUAL) 16 % (19-48); MONOCYTES % (MANUAL) 19 % (3.4-9.0); NEUTROPHILS % (MANUAL) 64 % (40-74)
[2018-01-22 07:05] LABS: ANISOCYTOSIS SLIGHT; HYPOCHROMASIA MODERATE
[2018-01-22 07:06] LABS: PLATELET ESTIMATE ADEQUATE; PLATELET MORPHOLOGY COMMENT NORMAL; POIKILOCYTOSIS SLIGHT; RBC MORPHOLOGY COMMENT NORMAL
[2018-01-22] MEDS: ENALAPRIL MALEATE 5 MG TAB PO SCH (09:00)
[2018-01-22] MEDS: ATENOLOL 50 MG TAB PO SCH (09:00)
[2018-01-22] MEDS: FOLIC ACID 1 MG TAB PO SCH (09:00)
[2018-01-22] MEDS: SERTRALINE HCL 50 MG TAB PO SCH (09:00)
[2018-01-22] MEDS: PRIMIDONE 50 MG TAB PO SCH (09:00)
[2018-01-22] MEDS: PANTOPRAZOLE 40 MG 10ML VIAL IV SCH ×2 (09:00→21:26)
[2018-01-22] MEDS: POTASSIUM CITRATE 10 MEQ TAB PO SCH (09:00)
[2018-01-22] MEDS: LEVOFLOXACIN 250 MG TAB PO SCH (16:44)
[2018-01-22] MEDS: BALSAM PERU/CASTOR OIL 60 GM OINT...G. TP SCH (16:44)
[2018-01-22] MEDS: ONDANSETRON HCL INJ 2 MG/ML VIAL IV PRN (19:46)
[2018-01-22] MEDS: PRAVASTATIN 20 MG TAB PO SCH (21:26)
[2018-01-23] VITALS (7 sets, daily range): BP systolic 122–136; BP diastolic 59–69
[2018-01-23] MEDS ORDERED: BISACODYL 5 MG TAB EC PO ONE
[2018-01-23] MEDS: ONDANSETRON HCL INJ 2 MG/ML VIAL IV PRN (00:18)
[2018-01-23] MEDS: MORPHINE SULFATE 2 MG/ML SYR IV PRN (00:18)
[2018-01-23 04:23] LABS: BASOPHILS % 0.3 % (0.0-1.0); EOSINOPHILS # (AUTO) 0.1 (0.0-0.4); EOSINOPHILS % 0.9 % (0.0-6.0); HEMATOCRIT 28.2 % (34.2-44.1); HEMOGLOBIN 8.5 g/dL (12.0-16.0); LYMPHOCYTES # (AUTO) 2.4 (1.0-3.2); MEAN CORPUSCULAR HEMOGLOBIN 25.3 pg (28-32); MEAN CORPUSCULAR HGB CONC 30.1 g/dL (31-35); MEAN CORPUSCULAR VOLUME 83.9 fL (81-99); MONOCYTES # (AUTO) 2.1 (0.2-0.8); MONOCYTES % 17.6 % (4.4-11.3); NEUTROPHILS # (AUTO) 7.1 (2.1-6.9); NEUTROPHILS % 60.8 % (38.7-80.0); PLATELET COUNT 220 x10e3/uL (140-360); RED BLOOD COUNT 3.36 x10e6/uL (3.6-5.1); RED CELL DISTRIBUTION WIDTH 20.3 % (11.7-14.4)
[2018-01-23 04:35] LABS: INR 1.49; PROTHROMBIN TIME 16.9 seconds (11.9-14.5)
[2018-01-23 04:44] LABS: ALANINE AMINOTRANSFERASE 9 IU/L (0-55); ALBUMIN 2.6 g/dL (3.5-5.0); ALBUMIN/GLOBULIN RATIO 0.7 (0.8-2.0); ALKALINE PHOSPHATASE 113 IU/L (40-150); ANION GAP 10.6 mmol/L (8-16); BLOOD UREA NITROGEN 18 mg/dL (7-26); BUN/CREATININE RATIO 25 (6-25); CALCIUM 8.7 mg/dL (8.4-10.2); CARBON DIOXIDE 29 mmol/L (22-29); CHLORIDE 98 mmol/L (98-107); CREATININE, SERUM 0.72 mg/dL (0.57-1.11); EST GLOMERULAR FILTRATION RATE > 60 ML/MIN (60-); GLUCOSE 109 mg/dL (74-118); POTASSIUM 4.6 mmol/L (3.5-5.1); SODIUM 133 mmol/L (136-145)
[2018-01-23 04:48] LABS: ANISOCYTOSIS SLIGHT; EOSINOPHILS % (MANUAL) 1 % (0-7); LYMPHOCYTES % (MANUAL) 15 % (19-48); MONOCYTES % (MANUAL) 18 % (3.4-9.0); NEUTROPHILS % (MANUAL) 65 % (40-74); PLATELET ESTIMATE ADEQUATE; PLATELET MORPHOLOGY COMMENT NORMAL; RBC MORPHOLOGY COMMENT NORMAL
[2018-01-23] MEDS: LEVOTHYROXINE SODIUM 25 MCG TABLET PO SCH (06:07)
[2018-01-23] MEDS: PANTOPRAZOLE 40 MG 10ML VIAL IV SCH ×2 (08:53→21:05)
[2018-01-23] MEDS: ATENOLOL 50 MG TAB PO SCH (08:53)
[2018-01-23] MEDS: FOLIC ACID 1 MG TAB PO SCH (08:53)
[2018-01-23] MEDS: PRIMIDONE 50 MG TAB PO SCH (08:53)
[2018-01-23] MEDS: ENALAPRIL MALEATE 5 MG TAB PO SCH (08:54)
[2018-01-23] MEDS: SERTRALINE HCL 50 MG TAB PO SCH (08:54)
[2018-01-23] MEDS: POTASSIUM CITRATE 10 MEQ TAB PO SCH (08:55)
[2018-01-23] MEDS: BALSAM PERU/CASTOR OIL 60 GM OINT...G. TP SCH ×2 (08:55→16:23)
[2018-01-23] MEDS ORDERED: SODIUM CHLORIDE 0.9% 250ML 250 ML ONE (16:22)
[2018-01-23] MEDS ORDERED: LACTULOSE SYRUP 20 GM/30 ML UDC PO PRN (17:15)
[2018-01-23] MEDS: LEVOFLOXACIN 250 MG TAB PO SCH (17:18)
[2018-01-23] MEDS: PRAVASTATIN 20 MG TAB PO SCH (21:05)
[2018-01-23] MEDS: HYDROCODONE/APAP 7.5MG-325MG 1 EA TAB PO PRN (21:05)
[2018-01-23] MEDS ORDERED: IOPAMIDOL 370 MG/ML 200 ML INFUS..BTL INJ ONE (21:15)
[2018-01-24] VITALS: BP 133/62
[2018-01-24 04:23] VITALS: BP 108/63
[2018-01-24 04:28] LABS: BASOPHILS % 0.3 % (0.0-1.0); EOSINOPHILS # (AUTO) 0.2 (0.0-0.4); EOSINOPHILS % 1.8 % (0.0-6.0); HEMATOCRIT 29.7 % (34.2-44.1); LYMPHOCYTES % 19.7 % (18.0-39.1); MEAN CORPUSCULAR HEMOGLOBIN 25.1 pg (28-32); MEAN CORPUSCULAR HGB CONC 30.3 g/dL (31-35); MEAN CORPUSCULAR VOLUME 82.7 fL (81-99); MONOCYTES # (AUTO) 1.5 (0.2-0.8); MONOCYTES % 15.4 % (4.4-11.3); NEUTROPHILS # (AUTO) 6.2 (2.1-6.9); NEUTROPHILS % 62.2 % (38.7-80.0); PLATELET COUNT 227 x10e3/uL (140-360); RED BLOOD COUNT 3.59 x10e6/uL (3.6-5.1); RED CELL DISTRIBUTION WIDTH 20.7 % (11.7-14.4)
[2018-01-24 04:41] LABS: INR 1.42; PROTHROMBIN TIME 16.3 seconds (11.9-14.5)
[2018-01-24 05:21] LABS: EOSINOPHILS % (MANUAL) 3 % (0-7); LYMPHOCYTES % (MANUAL) 15 % (19-48); MONOCYTES % (MANUAL) 12 % (3.4-9.0); NEUTROPHILS % (MANUAL) 70 % (40-74)
[2018-01-24 05:22] LABS: ANISOCYTOSIS SLIGHT; PLATELET ESTIMATE ADEQUATE; RBC MORPHOLOGY COMMENT NORMAL
[2018-01-24] MEDS: HYDROCODONE/APAP 7.5MG-325MG 1 EA TAB PO PRN (05:52)
[2018-01-24] MEDS: LEVOTHYROXINE SODIUM 25 MCG TABLET PO SCH (05:52)
[2018-01-24 08:00] VITALS: BP 122/58
[2018-01-24] MEDS: PRIMIDONE 50 MG TAB PO SCH (08:56)
[2018-01-24] MEDS: PANTOPRAZOLE 40 MG 10ML VIAL IV SCH ×2 (08:56→21:23)
[2018-01-24] MEDS: FOLIC ACID 1 MG TAB PO SCH (08:56)
[2018-01-24] MEDS: BALSAM PERU/CASTOR OIL 60 GM OINT...G. TP SCH ×2 (08:57→16:50)
[2018-01-24] MEDS: SERTRALINE HCL 50 MG TAB PO SCH (08:57)
[2018-01-24] MEDS: POTASSIUM CITRATE 10 MEQ TAB PO SCH (08:57)
[2018-01-24] MEDS: ATENOLOL 50 MG TAB PO SCH (08:57)
[2018-01-24] MEDS: ENALAPRIL MALEATE 5 MG TAB PO SCH (08:58)
[2018-01-24 12:00] VITALS: BP 127/71
[2018-01-24 16:00] VITALS: BP 123/56
--- NOTE | 2018-01-24 16:39 | Diagnostic Imaging Report ---
PROCEDURE: CT ABDOMEN \T\ PELVIS W/WO CONTRAST TECHNIQUE: The abdomen and pelvis were scanned utilizing a multidetector helical scanner from the diaphragm to the lesser trochanter before and after the IV administration of 150 cc of Isovue 370. Coronal and sagittal multiplanar reformations were obtained. RADIATION DOSE: 730 mGy-cm COMPARISON: None. INDICATIONS: HEMATURIA, RENAL STONE, COLOVESICAL FISTULA FINDINGS: LOWER THORAX: Moderate partially seen pericardial effusion. HEPATOBILIARY: No focal hepatic lesions. No biliary ductal dilatation. SPLEEN: No splenomegaly. PANCREAS: No focal masses or ductal dilatation. ADRENALS: No adrenal nodules. KIDNEYS/URETERS: No hydronephrosis or solid mass lesions. Bilateral renal atrophy, left greater than right. Punctate nonobstructing right lower pole renal stone. Bilateral hyperdense renal cysts are noted on noncontrast CT. On postcontrast images, there is no evidence of urothelial lesion. The bilateral ureters are partially opacified, areas of non opacification on the right likely reflecting peristalsis and areas of non-opacification of the left ureter distally may reflect PELVIC ORGANS/BLADDER: Bladder is only partially opacified by contrast on post contrast images. Mild bladder wall thickening posteriorly. Some layering debris or hemorrhagic products are noted on post contrast images. PERITONEUM / RETROPERITONEUM: Again noted is a collection containing air and possible stool between the bladder and sigmoid colon, measuring up to 4.3 x 2.1 x 2.1 cm (TV x AP x SI) slightly decreased from prior CT by measurement when it measured 4.3 x 2.4 x 2.9 cm. LYMPH NODES: No lymphadenopathy. VESSELS: Atherosclerotic calcification of the abdominal aorta and branch vessels. Likely stenoses of the origins of the celiac artery and SMA, incompletely evaluated in the absence fo arterial phase images. GI TRACT: Sigmoid colonic wall thickening is again noted adjacent to the collection. Sigmoid diverticulosis is present. Surgical changes of the stomach. The rectum is distended with stool measuring up to 8.7 cm. BONES AND SOFT TISSUES: No acute osseous abnormality. Degenerative changes of the lumbar spine, most marked at L4-L5. Anterolisthesis of L4-L5. Ventral abdominal wall postsurgical changes are again noted. IMPRESSION: Findings consistent with sigmoid diverticulitis with persistent but slightly smaller collection between the sigmoid colon and urinary bladder. 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 As before, an underlying malignancy may also be considered in the appropriate setting. Punctate right lower pole renal calculus without hydronephrosis. No evidence of ureteral stone or urothelial lesion. Partially seen moderate pericardial effusion. Extensive atherosclerotic changes as above. Dictated by: MARIELENA NORTH M.D. on 01/24/2018 at 16:43 Electronically approved by: MARIELENA NORTH M.D. on 01/24/2018 at 16:43
[2018-01-24] MEDS: GUAIFENESIN 600MG/DEXTROMETHORPHAN 30MG TABSR PO SCH (16:50)
[2018-01-24] MEDS: LEVOFLOXACIN 250 MG TAB PO SCH (16:50)
[2018-01-24 20:00] VITALS: BP 111/70
[2018-01-24] MEDS: PRAVASTATIN 20 MG TAB PO SCH (21:23)
[2018-01-25] VITALS: BP 119/56
[2018-01-25] MEDS: HYDROCODONE/APAP 7.5MG-325MG 1 EA TAB PO PRN ×2 (02:58→10:02)
[2018-01-25 04:00] VITALS: BP 140/63
[2018-01-25 04:59] LABS: INR 1.41; PROTHROMBIN TIME 16.2 seconds (11.9-14.5)
[2018-01-25] MEDS: LEVOTHYROXINE SODIUM 25 MCG TABLET PO SCH (05:33)
[2018-01-25 08:00] VITALS: BP 131/60
[2018-01-25 09:00] VITALS: BP 131/71
[2018-01-25] MEDS: FOLIC ACID 1 MG TAB PO SCH (09:58)
[2018-01-25] MEDS: PANTOPRAZOLE 40 MG 10ML VIAL IV SCH (09:58)
[2018-01-25] MEDS: PRIMIDONE 50 MG TAB PO SCH (09:58)
[2018-01-25] MEDS: GUAIFENESIN 600MG/DEXTROMETHORPHAN 30MG TABSR PO SCH ×2 (09:58→16:43)
[2018-01-25] MEDS: ATENOLOL 50 MG TAB PO SCH (10:00)
[2018-01-25] MEDS: SERTRALINE HCL 50 MG TAB PO SCH (10:01)
[2018-01-25] MEDS: POTASSIUM CITRATE 10 MEQ TAB PO SCH (10:01)
[2018-01-25] MEDS: ENALAPRIL MALEATE 5 MG TAB PO SCH (10:01)
[2018-01-25] MEDS: BALSAM PERU/CASTOR OIL 60 GM OINT...G. TP SCH ×2 (10:01→16:43)
--- NOTE | 2018-01-25 11:08 | Discharge Summary ---
Ms. Anila Scott is an 82-year-old female patient who presented to me with complaint of severe weakness and blood in the urine, hematuria. ADMITTING IMPRESSION AND DIAGNOSIS 1. Severe anemia, mzsnp-[id number] blood loss. The patient is on anticoagulation. 2. Urinary tract infection. 3. Hematuria. 4. Coronary artery disease. 5. Chronic obstructive pulmonary disease. 6. Severe osteoarthritis. HOSPITAL COURSE SUMMARY: The patient was admitted with the above diagnosis. The patient was treated with antibiotic. The patient had urology, GI and hematology consultations done. The patient was given blood transfusion. CT scan of the abdomen and pelvis was ordered to evaluate for colovesical fistula that was suspected. The patient had refused all the studies. She had explanation. Finally, the patient agreed to do the test. The CT scan was done. Impression was found to have sigmoid diverticulitis. The patient was treated with IV antibiotic Levaquin, which was changed to oral antibiotic Levaquin. The patient had steadfastly refused any surgical intervention, although it seems like the patient should have surgical intervention. The patient was advised to have cystoscopy and retrograde. If the patient agrees, it will be done as an outpatient. We will also obtain a surgical evaluation with Dr. Royal for possible fistula or a sigmoid mass. Only a sigmoidoscopy was able to be done as an outpatient earlier because the colonoscope was not able to pass through the sigmoid colon. We will get , and further treatment will be done as an outpatient. JEANNINE ZELAYA MD Job#: [id number]
[2018-01-25 12:00] VITALS: BP 116/54
[2018-01-25 16:00] VITALS: BP 141/76
[2018-01-25] MEDS: LEVOFLOXACIN 250 MG TAB PO SCH (16:43)
[2018-01-25] MEDS ORDERED: SIMVASTATIN 20 MG TAB PO SCH (21:00)
== END 2018-01-25 20:15 | disposition home or self-care (01) | DRG 811 ==
LOC: ER 12:30 → ERHOLD 18:36 → MED/SURG2 19:08 → OBSVTOIN 01-21 13:17
PROVIDERS: ADMIT Internal Medicine; ATTEND Internal Medicine
PROC: 30233N1 Transfusion of Nonautologous Red Blood Cells into Peripheral Vein, Percutaneous Approach (ICD-10-PCS; principal; 2018-01-21)
DX: D62 Acute posthemorrhagic anemia (principal); K25.5 Chronic or unspecified gastric ulcer with perforation; N39.0 Urinary tract infection, site not specified; K57.32 Diverticulitis of large intestine without perforation or abscess without bleeding; I25.10 Atherosclerotic heart disease of native coronary artery without angina pectoris; J44.9 Chronic obstructive pulmonary disease, unspecified; M19.90 Unspecified osteoarthritis, unspecified site; K44.9 Diaphragmatic hernia without obstruction or gangrene; L89.151 Pressure ulcer of sacral region, stage 1; F17.210 Nicotine dependence, cigarettes, uncomplicated; I48.91 Unspecified atrial fibrillation; Z79.01 Long term (current) use of anticoagulants; Z88.0 Allergy status to penicillin; B96.20 Unspecified Escherichia coli [E. coli] as the cause of diseases classified elsewhere; N39.46 Mixed incontinence; R31.0 Gross hematuria
CPT/HCPCS: 36415; 36430; 74178; 80053; 81001; 82150; 82270; 82306; 82728; 82784; 83540; 83690; 83735; 83880; 84100; 84436; 84443; 84466; 84479; 84550; 85025; 85045; 85610; 85730; 86850; 86900; 86920; 87086; 87186; 93005; 93306; 97139; 99285; G0378; J1756; J1940; J2270; J2405; J7050; P9016; Q9967

== ENCOUNTER 2018-08-20 16:04 | Emergency (ER) | payer MEDICARE ==
[~2018-08-20] VITALS: Ht 165.1 cm; Wt 59.0 kg
--- NOTE | 2018-08-20 16:20 | NUR ---
RECEIVED REPORT FROM YUNIEL WIRE COATING OPERATOR METAL NURSE TO ASSUME PTS CARE. PT PLACED IN BOYLE BED A. FAMILY AT BEDSIDE
--- NOTE | 2018-08-20 16:45 | NUR ---
DR WADE AT BEDSIDE DRESSING WOUNDS. PT WITH WOUND ON LEFT CASTILLO AND RIGHT HEEL.
--- NOTE | 2018-08-20 17:25 | NUR ---
WHEN I WENT TO DISCHARGE THE PATIENT THREE FAMILY MEMBERS BECAME AGRESSIVE AND TRIED TO REFUSE THE DISCHARGE. THEY WANTED THE PATIENT TO BE ADMITTED. THEY KEPT SAYING THAT THE PATIENT CAN'T GET UP AND THAT SHE ALWAYS URINATES ON HERSELF. I EXPLAINED TO THEM THAT THOSE ARE NOT INDICATIONS FOR ADMISSION AND THAT THEY WOULD NEED TO FOLLOW UP WITH HER PCP FOR THOSE ISSUES. I CALLED [facility] TO TAKE THE PATIENT HOME
--- NOTE | 2018-08-20 17:40 | NUR ---
FAMILY INSISTED ON CHECKING PT FOR UTI SO DR. WADE ORDERED A UA
[2018-08-20 18:19] LABS: BILIRUBIN,URINE 1+ (NEGATIVE); CLARITY,URINE CLOUDY (CLEAR); COLOR,URINE RED (YELLOW); KETONES,URINE NEGATIVE (NEGATIVE); LEUKOCYTE ESTERASE ,URINE 2+ (NEGATIVE); NITRITE,URINE NEGATIVE (NEGATIVE); PROTEIN,URINE DIPSTICK 2+ (NEGATIVE); URINE UROBILINOGEN 1 mg/dL (0.2 - 1)
[2018-08-20 18:20] LABS: BACTERIA,URINE MANY /HPF; RBC,URINE >50 /HPF (0-5); WBC,URINE (MAN) >50 /HPF (0-5)
[2018-08-20] MEDS ORDERED: CIPROFLOXACIN 500 MG TAB PO NR (18:30)
--- NOTE | 2018-08-20 18:50 | NUR ---
[facility]S ARRIVED FOR PT. DR. SOLANO GAVE THEM RX FOR ANTIBIOTICS
[2018-08-20 18:56] VITALS: BP 130/79
== END 2018-08-20 18:58 | disposition home or self-care (01) ==
LOC: ER 16:04
DX: L89.613 Pressure ulcer of right heel, stage 3 (principal); L89.893 Pressure ulcer of other site, stage 3; R53.1 Weakness; N39.0 Urinary tract infection, site not specified; I10 Essential (primary) hypertension; I48.91 Unspecified atrial fibrillation; Z85.828 Personal history of other malignant neoplasm of skin
CPT/HCPCS: 81001; 99283

== ENCOUNTER 2018-08-23 17:59 | Inpatient (IN) | payer MEDICARE ==
[~2018-08-23] VITALS: Ht 162.6 cm; Wt 66.5 kg
--- NOTE | 2018-08-23 18:00 | NUR ---
PAUL ENP, LITERARY AGENT, ED NURSE X2 AT BEDSIDE FOR WOUND ASSESSMENT AND TREATMENT. WOUNDS NOTED: LEFT LOWER EXTREMITY WITH 6X4 CM LEFT LATERAL LOWER LEG, 2X2 LEFT MEDIAL LOWER LEG, LEFT ANKLE 2X2, LEFT HEEL UNMEASURED, LEFT GREAT TOE UNMEASURED. RIGHT LOWER EXTREMITY WITH 2ND TOE DISTAL PHALYNX, RIGHT HEEL WITH BLEEDFINGM, UNABLE TO VISUALIZE FOR ANY STAGING, RIGHT DORSAL ASPECT OF FOOT NONBLANCHING, RIGHT LATERAL 5TH METATARSAL NONBLANCHING, LATERAL MALLEOLUS NONBLANCHABLE, UNIDENTIFIABLE LESION TO RIGHT LOWER LEG BELOW KNEE RIGHT UPPER EXTREMITY MULTIPLE NONBLANCHABLE AREAS RIGHT RIGHT WRIST AND FOREARM, BANDAID ON RIGHT FOREARM WITH HEALING WOUND. PATIENTS BACK NEAR WHAT APPEARS TO BE BRALINE WITH 16-17 CM STAGE II WOUND WITH RUPTURED BLISTERS, MULTIPLE AREAS ON BACK WITH NONBLANCHABLE SKIN, RIGHT BUTTOCK WITH NONSTAGEABLE SKIN SACRUM WITH LARGE UNSTAGEABLE WOUND X2 COCCYX WITH 3 SKIN TEARS.
--- OUTSIDE RECORDS SUMMARY | 2018-08-23 18:04 | XMS REPORT ---
Author Author [facility] Address Unknown Phone Unavailable Care Team Providers Care Measurement Technician Name Role Phone Hector ZELAYA Unavailable Unavailable Problems This patient has no known problems. Allergies, Adverse Reactions, Alerts This patient has no known allergies or adverse reactions. Medications This patient has no known medications. Results Test Description Test Time Test Comments Text Results Atomic Results Result Comments CT ABDOMEN/PELVIS WOW 2018-01-24 16:43:00 [place] [address] Patient Name: NATHANIEL HARRINGTON I MR #: [id number] : 1935 Age/Sex: 82/F Req #: [id number] Adm Physician: JEANNINE ZELAYA MD Ordered by: KARI KOROMA MD Report #: [id number] Location: MED/SURG Room/Bed: [facility] Procedure: [id number] CT/CT ABDOMEN/PELVIS WOW Exam Date: 01/23/18 Exam Time: 1655 REPORT STATUS: Signed PROCEDURE: CT ABDOMEN T PELVIS W/WO CONTRAST TECHNIQUE: The abdomen and pelvis were scanned utilizing a multidetector helical scanner from the diaphragm to the lesser trochanter before and after the IV administration of 150 cc of Isovue 370. Coronal and sagittal multiplanar reformations were obtained. RADIATION DOSE: 730 mGy-cm COMPARISON: None. INDICATIONS: HEMATURIA, RENAL STONE, COLOVESICAL FISTULA FINDINGS: LOWER THORAX: Moderate partially seen pericardial effusion. HEPATOBILIARY: No focal hepatic lesions. No biliary ductal dilatation. SPLEEN: No splenomegaly. PANCREAS: No focal masses or ductal dilatation. ADRENALS: No adrenal nodules. KIDNEYS/URETERS: No hydronephrosis or solid mass lesions. Bilateral renal atrophy, left greater than right. Punctate nonobstructing right lower pole renal stone. Bilateral hyperdense renal cysts are noted on noncontrast CT. On postcontrast images, there is no evidence of urothelial lesion. The bilateral ureters are partially opacified, areas of non opacification on the right likely reflecting peristalsis and areas of non-opacification of the left ureter distally may reflect PELVIC ORGANS/BLADDER: Bladder is only partially opacified by contrast on post contrast images. Mild bladder wall thickening posteriorly. Some layering debris or hemorrhagic products are noted on post contrast images. PERITONEUM / RETROPERITONEUM: Again noted is a collection containing air and possible stool between the bladder and sigmoid colon, measuring up to 4.3 x 2.1 x 2.1 cm (TV x AP x SI) slightly decreased from prior CT by measurement when it measured 4.3 x 2.4 x 2.9 cm. LYMPH NODES: No lymphadenopathy. VESSELS: Atherosclerotic calcification of the abdominal aorta and branch vessels. Likely stenoses of the origins of the celiac artery and SMA, incompletely evaluated in the absence fo arterial phase images. GI TRACT: Sigmoid colonic wall thickening is again noted adjacent to the collection. Sigmoid diverticulosis is present. Surgical changes of the stomach. The rectum is distended with stool measuring up to 8.7 cm. BONES AND SOFT TISSUES: No acute osseous abnormality. Degenerative changes of the lumbar spine, most marked at L4-L5. Anterolisthesis of L4-L5. Ventral abdominal wall postsurgical changes are again noted. IMPRESSION: Findings consistent with sigmoid diverticulitis with persistent but slightly smaller collection between the sigmoid colon and urinary bladder. 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 As before, an underlying malignancy may also be considered in the appropriate setting. Punctate right lower pole renal calculus without hydronephrosis. No evidence of ureteral stone or urothelial lesion. Partially seen moderate pericardial effusion. Extensive atherosclerotic changes as above. Dictated by: MARIELENA NORTH M.D. on 01/24/2018 at 16:43 Electronically approved by: MARIELENA NORTH M.D. on 01/24/2018 at 16:43 Dictated By: MARIELENA NORTH MD 42 Transcribed By: VALERIA on 01/24/181642 COPY TO: KARI KOROMA MD CT ABDOMEN/PELVIS W [place] [address] Patient Name: NATHANIEL HARRINGTON I MR #: [id number] : 1935 Age/Sex: 81/F Req #: [id number] Adm Physician: Ordered by: JEANNINE ZELAYA MD Report #: [id number] Location: CT Room/Bed: Procedure: [id number] CT/CT ABDOMEN/PELVIS W Exam Date: 10/19/17 Exam Time: 1830 REPORT STATUS: Signed EXAM: CT of the abdomen and pelvis WITH contrast HISTORY: UTI, abdominal pain COMPARISON: CTA of the abdomen and pelvis October [...] degenerative anterolisthesis of L4 on L5. SOFT TIS SUES: Ventral abdominal wall postsurgical changes, appear stable, [...] changes. 5. Atherosclerotic vascular disease. Signed by: Jolynn SunO., M.M.M. on 10/19/2017 9:08 PM Dictated By: CHELSEA ANDREA DO 07 Transcribed By: KATHERINE on 10/19/172107 COPY TO: JEANNINE ZELAYA MD ABDOMEN-[facility] ([place] [address] Patient Name: NATHANIEL HARRINGTON I MR #: [id number] : 1935 Age/Sex: 81/F Req #: [id number] [facility] Physician: Ordered by: JEANNINE ZELAYA MD Report #: [id number] Location: [facility] Room/Bed: Procedure: [id number] DX/ABDOMEN-1VIEW (KUB) Exam Date: 04/07/17 Exam Time: 1718 REPORT STATUS: Signed PROCEDURE: X-RAY ABDOMEN - KUB COMPARISON: [facility], DX, ABDOMEN-1VIEW (KUB), 01/23/2016, 16:49. INDICATIONS: REFLUX FINDINGS: Focal dilation [...]
--- NOTE | 2018-08-23 18:50 | NUR ---
EXTERNAL FEMALE URINARY CATHETER PLACED TO SUCTION
[2018-08-23 19:49] LABS: BILIRUBIN,URINE 2+ (NEGATIVE); CLARITY,URINE CLOUDY (CLEAR); COLOR,URINE STRAW (YELLOW); KETONES,URINE TRACE (NEGATIVE); LEUKOCYTE ESTERASE ,URINE 1+ (NEGATIVE); NITRITE,URINE NEGATIVE (NEGATIVE); PROTEIN,URINE DIPSTICK 2+ (NEGATIVE); URINE UROBILINOGEN 1 mg/dL (0.2 - 1)
[2018-08-23 19:51] LABS: BASOPHILS % 0.3 % (0.0-1.0); EOSINOPHILS # (AUTO) 0.2 (0.0-0.4); EOSINOPHILS % 1.8 % (0.0-6.0); HEMATOCRIT 32.4 % (34.2-44.1); HEMOGLOBIN 10.3 g/dL (12.0-16.0); LYMPHOCYTES # (AUTO) 2.1 (1.0-3.2); LYMPHOCYTES % 16.3 % (18.0-39.1); MEAN CORPUSCULAR HEMOGLOBIN 28.5 pg (28-32); MEAN CORPUSCULAR HGB CONC 31.8 g/dL (31-35); MEAN CORPUSCULAR VOLUME 89.5 fL (81-99); MONOCYTES # (AUTO) 1.8 (0.2-0.8); MONOCYTES % 13.8 % (4.4-11.3); NEUTROPHILS # (AUTO) 8.8 (2.1-6.9); NEUTROPHILS % 67.2 % (38.7-80.0); PLATELET COUNT 292 x10e3/uL (140-360); RED BLOOD COUNT 3.62 x10e6/uL (3.6-5.1); RED CELL DISTRIBUTION WIDTH 14.4 % (11.7-14.4)
[2018-08-23 19:59] LABS: BACTERIA,URINE MANY /HPF; RBC,URINE 21-50 /HPF (0-5); WBC,URINE (MAN) 21-50 /HPF (0-5)
[2018-08-23 20:02] LABS: ALANINE AMINOTRANSFERASE 16 IU/L (0-55); ALBUMIN 2.6 g/dL (3.5-5.0); ALBUMIN/GLOBULIN RATIO 0.7 (0.8-2.0); ALKALINE PHOSPHATASE 117 IU/L (40-150); ANION GAP 14.9 mmol/L (8-16); BLOOD UREA NITROGEN 12 mg/dL (7-26); BUN/CREATININE RATIO 20 (6-25); CALCIUM 9.2 mg/dL (8.4-10.2); CARBON DIOXIDE 25 mmol/L (22-29); CHLORIDE 99 mmol/L (98-107); CREATININE, SERUM 0.59 mg/dL (0.57-1.11); EST GLOMERULAR FILTRATION RATE > 60 ML/MIN (60-); GLUCOSE 108 mg/dL (74-118); MAGNESIUM 1.5 MG/DL (1.3-2.1); POTASSIUM 3.9 mmol/L (3.5-5.1); SODIUM 135 mmol/L (136-145)
[2018-08-23 20:34] LABS: EOSINOPHILS % (MANUAL) 1 % (0-7); LYMPHOCYTES % (MANUAL) 6 % (19-48); MONOCYTES % (MANUAL) 14 % (3.4-9.0); NEUTROPHILS % (MANUAL) 74 % (40-74); PLATELET ESTIMATE ADEQUATE; PLATELET MORPHOLOGY COMMENT NORMAL; RBC MORPHOLOGY COMMENT NORMAL
[2018-08-23] MEDS ORDERED: ENALAPRILAT IV INJ 1.25 MG/ML VIAL IV PRN (22:00)
[2018-08-23] MEDS ORDERED: ONDANSETRON HCL INJ 2MG/ML 2ML 2 MG/ML VIAL IV PRN (22:00)
[2018-08-23] MEDS ORDERED: DIPHENHYDRAMINE HCL INJ 50 MG/ML VIAL IV PRN (22:00)
[2018-08-23] MEDS ORDERED: IBUPROFEN 200 MG TAB PO PRN (22:00)
[2018-08-23] MEDS ORDERED: VANCOMYCIN 1GM/NS 250 ML 250 ML IV ONE (22:00)
[2018-08-23] MEDS ORDERED: ACETAMINOPHEN 325 MG TAB PO PRN (22:00)
[2018-08-23] MEDS ORDERED: SODIUM CHLORIDE FLUSH 10 ML SYR INJ PRN (22:00)
[2018-08-23] MEDS: LACTATED RINGER'S 1,000 ML IV SCH (23:10)
[2018-08-23 23:15] VITALS: BP 112/54
--- NOTE | 2018-08-23 23:15 | NUR ---
PATIENT RECEIVED FROM ER. PATIENT IS AAOX2 WITH SOME FORGETFULNESS. RESP EVEN AND UNLABORED. ASSESSMENT DONE. PUREWICK CATHETER NOTED, CONNECTED TO WALL SUCTION. MULTIPLE WOUND NOTED, 6X4 CM LATERAL LEFT CALF WOUND STAGE 3, TWO ANTERIOR/MEDIAL LEFT CALF 2X2 WOUNDS STAGE 3, LEFT GREAT TOE UNMEASURED DTI, LEFT HEEL UNMEASURED STAGE 1, RIGHT HEEL BLEEDING ULCER STAGE 3, RIGHT 2ND TOE WOUND, RIGHT DORSAL ASPECT OF FOOT NONBLANCHING, RIGHT LATERAL 5TH METATARSAL NONBLANCHING, UNIDENTIFIABLE LESION TO RIGHT LOWER LEG BELOW KNEE, RIGHT FOREARM HEALING WOUND UNDER BANDAGE, BACK STAGE 2 WOUND 16-17CM NEAR BRA LINE, RIGHT BUTTOCK NONBLANCHABLE ERYTHEMA, SACRUM LARGE STAGE 4 WOUNDS WITH MULTIPLE AREA OF SKIN TEAR. REWRAPPED WOUNDS WITH KERLIX. HEELS PLACE INTO HEEL PROTECTORS. ORIENTED TO ROOM. BOYFRIEND AT BED SIDE. BED ALARM ON. CALL LIGHT WITHIN REACH. INSTRUCT TO CALL FOR ASSISTANCE. BED LOW/LOCK. CONTINUE TO MON
[2018-08-23] MEDS: AZTREONAM 2GM/NS 100ML 100 ML IV SCH (23:18)
[2018-08-24] VITALS (8 sets, daily range): BP systolic 102–136; BP diastolic 44–62
[2018-08-24 05:52] LABS: BASOPHILS % 0.4 % (0.0-1.0); EOSINOPHILS % 0.3 % (0.0-6.0); HEMOGLOBIN 10.1 g/dL (12.0-16.0); LYMPHOCYTES # (AUTO) 1.9 (1.0-3.2); LYMPHOCYTES % 16.8 % (18.0-39.1); MEAN CORPUSCULAR HEMOGLOBIN 28.3 pg (28-32); MEAN CORPUSCULAR HGB CONC 31.6 g/dL (31-35); MEAN CORPUSCULAR VOLUME 89.6 fL (81-99); MONOCYTES # (AUTO) 1.3 (0.2-0.8); MONOCYTES % 11.7 % (4.4-11.3); NEUTROPHILS % 70.2 % (38.7-80.0); PLATELET COUNT 247 x10e3/uL (140-360); RED BLOOD COUNT 3.57 x10e6/uL (3.6-5.1); RED CELL DISTRIBUTION WIDTH 14.3 % (11.7-14.4)
[2018-08-24 06:22] LABS: ANION GAP 13.8 mmol/L (8-16); BLOOD UREA NITROGEN 11 mg/dL (7-26); BUN/CREATININE RATIO 21 (6-25); CALCIUM 9.1 mg/dL (8.4-10.2); CARBON DIOXIDE 24 mmol/L (22-29); CHLORIDE 100 mmol/L (98-107); CREATININE, SERUM 0.53 mg/dL (0.57-1.11); EST GLOMERULAR FILTRATION RATE > 60 ML/MIN (60-); GLUCOSE 107 mg/dL (74-118); POTASSIUM 3.8 mmol/L (3.5-5.1); SODIUM 134 mmol/L (136-145)
--- NOTE | 2018-08-24 07:00 | NUR ---
SHIFT REPORT DONE WHILE ROUNDING ON PT WITH NIGHT RN. PT DENIES NEEDS AT THIS TIME.
[2018-08-24] MEDS: AZTREONAM 2GM/NS 100ML 100 ML IV SCH ×3 (09:02→21:17)
[2018-08-24] MEDS: FAMOTIDINE 20 MG/2 ML VIAL IV SCH ×2 (09:02→17:34)
[2018-08-24] MEDS: VANCOMYCIN 1GM/NS 250 ML 250 ML IV SCH (11:09)
[2018-08-24] MEDS: LACTATED RINGER'S 1,000 ML IV SCH (11:20)
--- NOTE | 2018-08-24 12:00 | NUR ---
BEDSIDE I&D AND BIOPSY AT THIS TIME. PT TOLERATED AND FAMILY MEMBER AT BEDSIDE.
[2018-08-24] MEDS ORDERED: LIDOCAINE HCL 1% LOCAL INJ 20 ML VIAL INJ ONE (12:30)
--- NOTE | 2018-08-24 13:41 | NUR ---
WOUND CARE CONSULTATION - INITIAL EVALUATION Patient admitted for UTI and Multiple Wounds. Dr Mireles On Case for Wound Care Services WBC11.42 HGB10.1 HCT32 NEUT%70.2 ALB2.6 AIS551 Wound Care Consulted for Multiple Wounds. Celestino Score 14 Alternating Pressure Air Mattress Moderate PUP Active PATIENT VISIT: - Dr. Mireles Managing Wound Care Needs. -Patient in bed with Boyfriend at Bedside. -Multiple wounds noted. - Left Heel Pressure Ulcer - Stage II - Present On Admission - Right Heel - Unstageable -Pressure Ulcer - Present On Admission - Left [place]k Multiple Skin Tears. - Left Lateral Leg - Skin Tear- Non Healing. - Biopsy done By Dr. Mireles. - Right Foot 2nd Toe - Healing Stage III - Pressure Ulcer - Present On Admission. - Right Dorsal Foot- shear friction- closed. - Sacral - Unstageable Pressure Ulcer - 90% slough- periwound pink. No Induration. Santyl Ordered per Dr. Mireles. - Mid Back- Transverse - marking from bra line. RECOMMENDATION: 1. Left Heel - Santyl and Xeroform and Foam Dressing Daily 2. Right Heel - Xeroform and Foam Dressing Daily 3. Sacral - Santyl and Allevyn Foam Dressing Daily 4. Left Leg Skin Tears - Xeroform Single Layer and Wrap with Light Kerlix Daily 5. Left Lateral Leg Ulcer - Adaptec then Cover with Maxsorb Ag+ and ABD Pad + Kerlix Daily 6. Right Dorsal Foot - Xeroform Single Layer and Cover with Kerlix Bandage Daily 7. Right Foot 2nd Toe - Xeroform Single Layer and Cover with Gauze and Kerlix Wrap Daily. 8. Left Hallux - Venelex and Leave Open To Air - Stable. 9. Turn and Reposition Patient Every 2 Hours 10 Continue Alternating Air Mattress 11. Bilateral Heel Protectors/ Offload Heels with Pillows while in bed. Thank you for Consulting with Wound Care. Addendum: 08/24/18 at 1401 by Tomy Contreras RN Amended: Links added.
--- NOTE | 2018-08-24 15:12 | NUR ---
Pt is asleep. Not waking up to answer questions. Electrical Technician King at bedside. Stated that pt's daughter Laura usually makes decisions for her. CM placed call to hansel Castle [phone] and left a voicemail for her to call back regarding LTAC eval.
--- NOTE | 2018-08-24 15:45 | NUR ---
CASE MANAGEMENT INITIAL ASSESSMENT Field Services Director to bedside to discuss plan of care with patient/family. CM/SW role and care transitions discussed. Anticipated discharge plan discussed along with duration of care. CM/SW discussed patients right to make decisions in care. CM/SW work hours given. Spoke to pt's daughter Laura Castle at bedside Patient lives: with chargeback analyst King Admit/Transfer: thru ED Hospital/ER visits since last admit: 1; last admit was in January 2018 POA/Emergency contact: 1. Laura Castle [phone]; 2. granddaughter Denisse Jones [phone] Current/Previous Home Health: none PCP/Follow-up Care: Dr. Ivonne Dia Current/Previous DME: wheelchair Medications (referring to index hospitalization or the first time you were in the hospital) a. Were changes made in your medications when you were in the hospital on [date of index hospitalization]? n/a b. Did you understand the changes? n/a c. Were you able to obtain your new medications right away? n/a d. Were you able to take your medications like the doctor wanted you to? n/a e. Did the hospital give you an accurate, easy to understand list of medications when you left? n/a Scale of 1-10 how comfortable does patient feel with disease management in outpatient setting: Other Services: none Employment Status: retired Areas of Concerns: weakness, wounds, UTI Referral Needs: LTAC then will need home health once discharged home Education Needs: medical management IMM/HERNANDEZ given and signed (if applicable): not at this time Goal for discharge: LTAC Pt's daughter gave choice for [facility]. Choice letter signed and placed in chart. Copy to pt's daughter. Addie with [facility] was informed. Will cotton picker clinicals. CM/SW left business card at the bedside with contact information. Name and number was also written on the patients whiteboard. Patient verbalized understanding of discussion. CM will follow-up with ongoing discharge and transition of care needs.
[2018-08-24] MEDS: MORPHINE SULFATE INJ 4 MG/ML INJ 1ML IV PRN (16:18)
--- NOTE | 2018-08-24 16:29 | Consultation ---
DATE OF CONSULTATION: WOUND CONSULTATION Thank you, Dr. Dia, for asking me to see this patient. HISTORY OF PRESENT ILLNESS: An 82-year-old female patient admitted with a right heel pressure ulcer, unstageable, left leg chronic nonhealing ulcer, sacral ulcer wound. Consult was called. The patient is bedbound. According to the son, the patient sustained an injury laceration in February of 2018 to the left leg following which the wound is nonhealing. He showed several pictures of the wound since February. Wound was healing, and then it is hypergranulating with raised margin suspicious of malignancy. 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 I discussed with him to have a biopsy done and a debridement. Right heel has necrotic eschar unstageable wound and right dorsum of the foot is bruised from compression. The patient has a history of peripheral vascular disease. Had stents to the right leg. She also has diverticulitis, which has made her weak according to the patient's son. The patient is awake, alert and cognitively impaired. Has a history of atrial fibrillation, hyperlipidemia, arthritis. MEDICATIONS 1. Atenolol 50 mg half tablet daily. 2. Primidone 50 mg daily. 3. Pravastatin 20 mg daily. 4. Enalapril 2.5 mg daily. 5. Lasix 20 mg daily. 6. Eureka. 7. Folic acid 1 mg 2 tablets daily. 8. Levothyroxine 25 mcg daily. 9. Sertraline 50 mg. 10. Potassium 10 mEq daily. PERSONAL HISTORY: No history of smoking or alcohol. PHYSICAL EXAMINATION VITALS: Blood pressure 134/56, pulse 79, temperature of 98. HEENT: Normal. NECK: No JVD. LUNGS: Bilateral air entry normal. ABDOMEN: Soft. Bowel sounds normal. EXTREMITIES: Lower extremities with multiple skin lacerations noted. Bedbound. SKIN: On right heel, the patient has a wound that measures 5 x 4 cm, 80% necrotic and unstageable. Right dorsum of the foot is bruised. There is a skin tear to the right leg and also there is a wound on the left lateral leg that measures approximately 6 x 5 cm with hypergranulation raised. On the coccyx area, the patient has a stage 4 pressure ulcer and 100% necrotic with exposed fascia. Measures approximately 3.5 x 3.5 x 0.2 cm. Wound margin attached to base. Periwound is macerated. ASSESSMENT 1. Sacral pressure ulcer, stage 4. 2. Right heel unstageable pressure ulcer, left lateral leg. 3. Left lateral leg Ulcer, traumatic, rule out malignancy due to the appearance PLAN: Biopsy and debridement of the left leg ulcer. Plan discussed with the patient's son. Also, apply Santyl hydrogel Mepilex to the sacrum and Iodosorb to the right heel and Xeroform to the skin tears. Thank you, Dr. Dia, for asking me to see this patient. I will follow with you. Job#: [id number] MARCIAL HUBER
--- NOTE | 2018-08-24 16:30 | Consultation ---
DATE OF CONSULTATION: August 24, 2018 REASON FOR CONSULTATION: Wound infection and urinary tract infection. Thank you, Dr. Dia for asking me to see this patient. HISTORY: The patient is an 82-year-old woman referred for a urinary tract infection and wound infection. She was sent by the primary care provider to the emergency department with a wound infection and suspected urinary tract infection. The patient was evaluated in the emergency department a few days earlier because of bleeding leg wound. The patient denies fever and chills. 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 The patient has been evaluated by the wound care service. Left leg wound biopsy obtained. More detailed informed cannot be obtained at this time. PAST MEDICAL HISTORY: Hypertension, hyperlipidemia, coronary artery disease, atrial fibrillation, peripheral arterial disease, status post stenting, chronic obstructive pulmonary disease, hypothyroidism, squamous cell cancer of the leg, stage IV, right heel ulcer, colovesical fistula, right heel ulcer, sacral ulcer, and depression. PAST SURGICAL HISTORY: Abdominal hernia repair, carpal tunnel release surgery and left 2nd toe amputation. ALLERGIES: PENICILLIN AND ADHESIVE TAPE. MEDICATIONS: The current antibiotics are: 1. Aztreonam 1 g IVPB q.12 h. 2. Vancomycin 1 g IVPB q.24 h. IMMUNIZATIONS: She received a pneumococcal vaccination in the past. The influenza vaccination status cannot be verified at this time. FAMILY HISTORY: Noncontributory. SOCIAL HISTORY: No alcohol or tobacco use. REVIEW OF SYSTEMS: As per history of present illness. PHYSICAL EXAMINATION GENERAL: No acute distress. VITAL SIGNS: T-max 99.7, pulse 85, respiratory rate 18, blood pressure 114/54, weight 144 pounds. HEENT: Normocephalic. There is no icterus or injection of conjunctivae. There is no ear or nasal discharge. Moist oral mucosa. No pharyngeal erythema or exudate. NECK: Supple. No meningismus. LUNGS: Good air entry bilaterally. HEART: Normal S1 and S2. ABDOMEN: Soft and nontender. EXTREMITIES: There is no edema, clubbing or cyanosis. The left 2nd toe has been amputated. There is a right heel ulcer. There is also a lateral left leg lesion, as well as an unstageable ulcer of the sacrum. SKIN: As per extremities. EMBEDDED SYSTEMS ENGINEER: Awake, alert and oriented. LABORATORY AND DIAGNOSTICS: WBC 11,400 down from 13,060 on admission, hemoglobin 10.1, and platelet 247,000. Neutrophils 70.2, lymphocytes 16.8, monocytes 11.7, eosinophil 0.3, and basophils 0.4. BUN 11, creatinine 0.53, blood glucose 107. Urinalysis is abnormal with pyuria with wbcs of 21-50 and rbcs 21-50. Bacteria many. Urine culture is pending. IMPRESSION 1. Complicated urinary tract infection. 2. Decubitus ulcer of the right heel and sacrum. 3. Left leg lesion, worrisome for malignancy. 4. Colovesical fistula. PLAN 1. Wound care input has been noted. Await the left leg biopsy report. 2. Change aztreonam to 1 g IVPB q.8 h. Verify influenza and pneumococcal vaccination status. Job#: [id number] MARCIAL
--- NOTE | 2018-08-24 16:33 | Operative Report ---
DATE OF PROCEDURE: PROCEDURE PERFORMED: Wound debridement and biopsy. HISTORY: Patient is an 82-year-old female patient admitted with a chronic nonhealing ulcer to the left leg. DESCRIPTION OF PROCEDURE: After explaining the procedure and obtaining consent, I injected 1 mL of lidocaine. A 5 mm punch biopsy taken. Two specimens sent for pathology, and I used a scissors to do an excisional debridement to remove all the hypergranulation and nonviable tissue and part of the viable tissue. There was moderate bleeding controlled with pressure. Wound cleaned with normal saline, applied 4 x 4, Kerlix and tape and Coban for compression. Area debrided was 24 sq. cm. Patient tolerated the procedure well. Job#: [id number] EV
--- NOTE | 2018-08-24 16:51 | History and Physical ---
This 82-year-old female patient of mine presented to my office after the emergency room visit as the patient's leg ulcer was bleeding, and the patient has a compression stocking on that. HISTORY OF PRESENT ILLNESS: Ms. Anila Scott is an 82-year-old homebound patient. She is mostly bedbound with very limited mobility suffering from chronic leg ulceration. The patient started having bleeding in the left lower leg ulceration and had a bad foul smell. She was bleeding. Also, the patient had acute ulceration. The patient was having severe pain. The patient was evaluated in the office. The patient was very stiff and very uncooperative, but the patient was in severe pain. MEDICAL HISTORY: The patient has significant medical history of PAD, angioplasty of the leg, atrial fibrillation, COPD, hypertension, hyperlipidemia. The patient has a history of colovesical fistula. ALLERGIES: THE PATIENT IS ALLERGIC TO PENICILLIN AND ADHESIVE TAPE. SOCIAL HISTORY: The patient is an ex-smoker. Denies using alcohol. FAMILY HISTORY: Hypertension. REVIEW OF SYSTEMS: The patient has severe leg pain and back pain. MEDICATIONS: See from the list. PHYSICAL EXAMINATION VITAL SIGNS: Temperature 99, pulse rate 96, blood pressure 136/78, respirations 18. HEENT: Normocephalic, atraumatic. NECK: No JVD. No lymphadenopathy. LUNGS: Bilateral equal air entry with rhonchi present. HEART: S1 and S2, irregular. A systolic murmur is present. ABDOMEN: Soft. Bowel sounds are present. NEUROLOGIC: The patient has no focal neurological deficit. EXTREMITIES: The patient has a left lower extremity 6 x 4 cm lateral open wound, stage 3 to 4, and sloughing. On the right lower extremity, the patient has a toe erosion and a 5 x 4 cm right foot ulcer. ADMISSION IMPRESSION AND DIAGNOSES 1. Multiple leg ulcerations with cellulitis and infection. 2. Urinary tract infection with cystitis, hematuria and colovesical fistula. PLAN: The patient will be admitted with the above diagnoses. The patient will need aggressive wound care. We will treat the patient with IV antibiotics, aztreonam and vancomycin. We will obtain ID and wound care consultations. Job#: [id number]
--- NOTE | 2018-08-24 17:00 | NUR ---
PLEASE SEE NOTES FOR WOUND ASSESSMENT AND CARE.
--- NOTE | 2018-08-24 17:02 | Consultation ---
DATE OF CONSULTATION: CARDIOLOGY CONSULTATION HISTORY OF PRESENT ILLNESS: This is an 82-year-old woman who is essentially bedbound with a history of atrial fibrillation, hypertension, hyperlipidemia, peripheral vascular disease, status post intervention of the right lower extremity, history of squamous cell carcinoma, who presented with multiple pressure ulcers and lower extremity wounds in addition to a urinary tract infection. The patient states that she is essentially bedbound, and does not ambulate on her lower extremities. She has had chronic wounds over the lower extremities. No exacerbating or relieving factors. Symptoms associated with severe fatigue, loss of appetite and weight loss. REVIEW OF SYSTEMS: A 12-point review of systems was conducted and is negative otherwise stated above in the HPI. PAST MEDICAL HISTORY: As stated above in the HPI. PAST SURGICAL HISTORY: Peripheral vascular intervention. PAST FAMILY HISTORY: No premature coronary artery disease or sudden cardiac . ALLERGIES: PENICILLIN. SOCIAL HISTORY: No illicit drug use, alcohol use or tobacco use. MEDICATIONS: See medication reconciliation form. PHYSICAL EXAMINATION VITALS: Temperature is 99.7, heart rate is 85, respirations 18, blood pressure is 114/54, oxygen saturation 97% on room air. GENERAL: She is a chronically ill-appearing elderly woman lying comfortably in bed. HEENT: Head is normocephalic and atraumatic. Eyes: Extraocular muscles intact. Anicteric sclerae. NECK: No JVD. No bruits. CARDIOVASCULAR: She is irregular rhythm. Systolic murmur at the left lower sternal border. LUNGS: Demonstrates . ABDOMEN: Soft and nontender. EXTREMITIES: Skin is dry. There is a left lower extremity wound. LABORATORY DATA: Reviewed. CT angiography of the lower extremities in 2016 showed a stent within the distal superficial femoral artery extending to the level of the tibial peroneal trunk and it was patent. The right anterior tibial artery was occluded with distal reconstitution with patent 3 vessels at the midcalf. Left lower extremity showed a patent stent in the proximal left superficial femoral artery with patent tibial vessels. IMPRESSION 1. Peripheral arterial disease. 2. Lower extremity wounds. 3. Pressure ulcers. 4. Chronic debilitation. 5. Tricuspid regurgitation. 6. Hypertension. 7. Atrial fibrillation. 8. Hyperlipidemia. RECOMMENDATIONS: Will order a lower extremity Doppler for assessment of patency of previous stent and tibial vessels. If needed for wound healing, can offer angiography. If conservative therapy is deemed necessary for local wound healing, then will defer invasive management at this point in time. Otherwise, continue all current cardiovascular medications. Will follow along with you. Job#: [id number] MARCIAL
--- NOTE | 2018-08-24 17:33 | NUR ---
Nutrition Intervention Note RD Recommendation(s) for Physician: -Continue cardiac diet as ordered -Rec Ensure Enlive BID to promote protein-calorie intake -Rec MVi w/minerals and vitamin C for wound healing -Consult INNERSOLE MAKER for swallow eval if necessary Plan of Care: RD following, monitoring for tolerance and adequacy, ONS rec Nutrition reason for involvement: Pressure ulcer RD Assessment 08/24- Chart reviewed. 82yo F, who is admitted for lower extremity ulcer. Pt is mostly bedbound with very limited mobility suffering from chronic leg ulceration. Wound care is on the case. Visited pt in the room. Pt reported fair appetite with mild nausea. No vomiting episode noted. Pt denied any recent weight loss with UBW ~130lbs. LBM 08/23. Pt cant chew too well due to poor dentition. Diet has been downgraded to mechanical soft per pt request. Pt reported of some swallowing issue with liquids in the past but didnt think it was a big deal. Rec INNERSOLE MAKER consult for swallow study; pt was not willing to see INNERSOLE MAKER. Will continue to monitor and follow. Principal Problems/Diagnoses: 1. Peripheral arterial disease. 2. Lower extremity wounds. 3. Pressure ulcers. 4. Chronic debilitation. PMH: PAD, angioplasty of the leg, atrial fibrillation, COPD, hypertension, hyperlipidemia, colovesical fistula. GI: abdomen flat, non-tender, flatus present, LBM 08/23 Skin: multiple wounds, see wound care notes Labs: (08/24) Na 134 L, Creatinine 0.53 L Meds: lactated ringer, abx, pepcid Ht: 64in Wt: 144.5lb BMI: 24.8kg/m2 IBW: 120lb Malnutrition Evaluation (08/24) The patient does not meet criteria for a specified degree of malnutrition at this time. Will re-evaluate at follow-up as appropriate. Nutrition Prescription (Diet Order): cardiac diet Estimated Nutritional Needs: Calories: 1625 1950kcal (25-30kcal/kg/d) Weight used: current BW Protein : 85 130g(1.3-2g/kg/d) Weight used: current BW Diet Adequacy: N/A Diet Education Needs Assessment: Diet education indicated, but patient not appropriate for education at this time. Nutrition Care Level: low Nutrition Diagnosis: Increased protein needs related to altered skin integrity as evidenced by multiple wounds noted. Goal: Patient will meet 75-100% of estimated needs by follow up Progress: N/A Interventions: Minerals/ texture modified diet, Commercial beverage, Multivitamin/mineral supplement therapy Monitoring/Evaluation: Total energy intake, Total protein intake, Prescription medication, Modified diet, Liquid supplement, Weight change Signed: Shaila Alas MS, RD, LD
[2018-08-24] MEDS ORDERED: PRAVASTATIN 20 MG TAB PO SCH (21:00)
[2018-08-25 00:40] VITALS: BP 120/53
[2018-08-25] MEDS: MORPHINE SULFATE INJ 4 MG/ML INJ 1ML IV PRN ×3 (05:30→13:40)
[2018-08-25] MEDS: AZTREONAM 2GM/NS 100ML 100 ML IV SCH ×2 (05:45→13:25)
[2018-08-25 05:51] LABS: BASOPHILS % 0.3 % (0.0-1.0); EOSINOPHILS # (AUTO) 0.2 (0.0-0.4); EOSINOPHILS % 2.8 % (0.0-6.0); HEMATOCRIT 29.1 % (34.2-44.1); HEMOGLOBIN 9.2 g/dL (12.0-16.0); LYMPHOCYTES # (AUTO) 1.8 (1.0-3.2); LYMPHOCYTES % 24.4 % (18.0-39.1); MEAN CORPUSCULAR HEMOGLOBIN 28.2 pg (28-32); MEAN CORPUSCULAR HGB CONC 31.6 g/dL (31-35); MEAN CORPUSCULAR VOLUME 89.3 fL (81-99); MONOCYTES % 14.1 % (4.4-11.3); NEUTROPHILS # (AUTO) 4.2 (2.1-6.9); PLATELET COUNT 236 x10e3/uL (140-360); RED BLOOD COUNT 3.26 x10e6/uL (3.6-5.1); RED CELL DISTRIBUTION WIDTH 14.4 % (11.7-14.4)
[2018-08-25] MEDS ORDERED: LEVOTHYROXINE SODIUM 25 MCG TABLET PO SCH ×2 (06:00→09:00)
[2018-08-25 06:15] LABS: ALANINE AMINOTRANSFERASE 11 IU/L (0-55); ALBUMIN 2.2 g/dL (3.5-5.0); ALBUMIN/GLOBULIN RATIO 0.6 (0.8-2.0); ALKALINE PHOSPHATASE 89 IU/L (40-150); ANION GAP 12.7 mmol/L (8-16); BLOOD UREA NITROGEN 9 mg/dL (7-26); BUN/CREATININE RATIO 18 (6-25); CALCIUM 8.7 mg/dL (8.4-10.2); CARBON DIOXIDE 25 mmol/L (22-29); CHLORIDE 105 mmol/L (98-107); CREATININE, SERUM 0.51 mg/dL (0.57-1.11); EST GLOMERULAR FILTRATION RATE > 60 ML/MIN (60-); GLUCOSE 99 mg/dL (74-118); POTASSIUM 3.7 mmol/L (3.5-5.1); SODIUM 139 mmol/L (136-145)
[2018-08-25 06:37] VITALS: BP 133/64
--- NOTE | 2018-08-25 07:10 | NUR ---
rounded with production supervisor off shift nurse, patient resting in bed. Bed in lowest position and call gamez within reach
[2018-08-25] MEDS ORDERED: FOLIC ACID 1 MG TAB PO SCH (09:00)
[2018-08-25] MEDS ORDERED: VIT C PO SCH (09:00)
[2018-08-25] MEDS ORDERED: BALSAM PERU/CASTOR OIL 60 GM OINT...G. TP SCH (09:00)
[2018-08-25] MEDS ORDERED: OMEGA 3 POLYUNSAT FATTY ACIDS 1000 MG SOFTGEL PO SCH (09:00)
[2018-08-25] MEDS ORDERED: COLLAGENASE 5 GM TUBE TOP SCH (09:00)
[2018-08-25] MEDS ORDERED: ASCORBIC ACID 500 MG TAB PO SCH (09:00)
[2018-08-25] MEDS ORDERED: ATENOLOL 50 MG TAB PO SCH (09:00)
[2018-08-25] MEDS ORDERED: NON-FORMULARY MEDICATION (Pravastatin Sodium 20 MG) PO SCH (09:00)
[2018-08-25] MEDS ORDERED: SERTRALINE HCL 50 MG TAB PO SCH (09:00)
[2018-08-25] MEDS ORDERED: PRIMIDONE 50 MG TAB PO SCH (09:00)
[2018-08-25 09:23] VITALS: BP 135/59
[2018-08-25 09:40] VITALS: BP 135/59
[2018-08-25] MEDS: FAMOTIDINE 20 MG/2 ML VIAL IV SCH ×2 (09:40→16:50)
--- NOTE | 2018-08-25 11:53 | NUR ---
Addie informed CM that there was no H&P available yesterday when she picked up clinicals. Stated pt did not want to go to [facility] yesterday when she talked to her. Dr. Dia was going to talk to pt on rounds. CM spoke to pt at bedside. Dr. Dia has already rounded. Pt stated she is agreeable to go to [facility]. [facility] faxed H&P to [phone]. Tamikora Camp [phone], covering [facility] this weekend, was notified.
[2018-08-25] MEDS: VANCOMYCIN 1GM/NS 250 ML 250 ML IV SCH (12:10)
--- NOTE | 2018-08-25 12:39 | NUR ---
MOT received from Tamiko Camp, liaison with [place] [address] [place] [address] Dr. Cierra Dia to attend Kamlesh Panchal, AVIONICS SYSTEM ENGINEER Rm [id number] after 3pm MOT placed in nurse's station. AMY Segal was informed of MOT.
[2018-08-25 13:04] VITALS: BP 143/65
--- NOTE | 2018-08-25 16:15 | NUR ---
report called to [facility] to Elena, patient aware of change and will transport via ambulance to LTAC facility
[2018-08-25 17:15] VITALS: BP 116/57
--- NOTE | 2018-08-25 17:32 | Progress Note ---
DATE: August 25, 2018 CARDIOLOGY PROGRESS NOTE SUBJECTIVE: Patient denies chest pain or shortness of breath. OBJECTIVE VITAL SIGNS: Temperature 97.2 degrees, pulse 86, respiratory rate 18, blood pressure 143/65, oxygen saturation 95% on room air. GENERAL: Awake, alert, chronically ill-appearing woman, in no acute distress. LUNGS: Clear to auscultation bilaterally. No wheezes or crackles. CARDIOVASCULAR: Irregularly irregular, normal rate. A 2/6 systolic murmur. ABDOMEN: Soft, nontender. EXTREMITIES: Left lower extremity wound. CARDIAC MEDICATIONS 1. Atenolol 25 mg p.o. daily. 2. Levothyroxine 25 mcg p.o. daily. LABS: WBC 7.18, hemoglobin 9.2, hematocrit 29.1, platelets 236. Sodium 139, potassium 3.7, chloride 105, CO2 of 25, BUN 9, creatinine 0.51. IMPRESSION 1. Peripheral arterial disease. 2. Ulcerations of bilateral lower extremities with cellulitis. 3. Decubitus ulcer. 4. Chronic debilitation. 5. Tricuspid regurgitation. 6. Hypertension. 7. Atrial fibrillation. 8. Hyperlipidemia. RECOMMENDATIONS: Bilateral lower extremity arterial Doppler was ordered. We will review the images once available. Continue wound care. Antibiotics per infectious disease. Continue current cardiac medications. Blood pressure is adequately controlled for age. Thank you for this consult. We will continue to follow. Job#: [id number] LPA
--- NOTE | 2018-08-25 18:43 | NUR ---
report given to automotive service manager from [facility] for patient to be transported to [facility]. Patient alert and oriented, with family at bedside. Patient in stable condition.
== END 2018-08-25 18:45 | DRG 673 ==
LOC: ER 17:59 → ERHOLD 22:30 → MED/SURG2 22:51
PROVIDERS: ADMIT Internal Medicine; ATTEND Internal Medicine
PROC: 0JBP0ZZ Excision of Left Lower Leg Subcutaneous Tissue and Fascia, Open Approach (ICD-10-PCS; principal; 2018-08-24)
DX: N30.01 Acute cystitis with hematuria (principal); L89.893 Pressure ulcer of other site, stage 3; L89.154 Pressure ulcer of sacral region, stage 4; N32.1 Vesicointestinal fistula; L03.116 Cellulitis of left lower limb; L03.115 Cellulitis of right lower limb; L89.610 Pressure ulcer of right heel, unstageable; L89.622 Pressure ulcer of left heel, stage 2; D64.9 Anemia, unspecified; I48.91 Unspecified atrial fibrillation; I10 Essential (primary) hypertension; E78.5 Hyperlipidemia, unspecified; M19.90 Unspecified osteoarthritis, unspecified site; I07.1 Rheumatic tricuspid insufficiency; R53.81 Other malaise; I73.9 Peripheral vascular disease, unspecified; Z95.820 Peripheral vascular angioplasty status with implants and grafts; Z89.422 Acquired absence of other left toe(s); Z85.9 Personal history of malignant neoplasm, unspecified; Z88.0 Allergy status to penicillin; Z91.048 Other nonmedicinal substance allergy status; Z82.49 Family history of ischemic heart disease and other diseases of the circulatory system; Z87.891 Personal history of nicotine dependence; Z74.01 Bed confinement status
CPT/HCPCS: 36415; 80048; 80053; 81001; 83605; 83735; 85025; 87040; 87086; 88305; 88312; 97139; 99284; J2001; J2270; J3370; J7121